=== PATIENT | female | born 1960 | race African-American/Black ===

== ENCOUNTER 2019-04-12 10:21 | Outpatient (CLI) | payer MEDICARE, MEDICAID, SELFPAY ==
--- NOTE | ~2019-04-12 | MM_ITS ---
EXAMINATION: MM screening johnathan BI w cristal HISTORY: Screening mammogram TECHNIQUE: Craniocaudal and mediolateral oblique 3-D tomosynthesis images were obtained and synthetic 2-D images were generated. CAD analysis was submitted and interpreted. COMPARISON: 08/04/2012 BREAST PARENCHYMAL COMPOSITION: There are scattered areas of fibroglandular density. FINDINGS: There is no evidence of suspicious mass, calcification, or architectural distortion to sugg est malignancy in either breast. There has been no suspicious interval change. IMPRESSION: 1. No mammographic evidence of malignancy. 2. Recommend routine screening mammography in one year. BI-RADS Category 1: Negative Reviewed, dictated and finalized at location A. SYSTEM ADMINISTRATOR
--- NOTE | ~2019-04-12 | XR_ITS ---
EXAMINATION: XR hip BI 2V w AP pelvis DATE: 04/12/2019 11:43 INDICATION: Right hip pain TECHNIQUE: AP view of the pelvis and three views of each hip were obtained. COMPARISON: 11/10/2009 FINDINGS: Bone alignment is normal. There is mild bilateral hip osteoarthritis. No fracture is identi fied. There are phleboliths of the pelvis. The bowel gas pattern is normal. The soft tissues are unre markable. There is mild/moderate lower lumbar spondylosis. IMPRESSION: 1. Mild hip osteoarthritis without acute findings. Reviewed, dictated and finalized at location A. ETRICS SCRUB NURSE
== END 2019-04-12 10:22 | disposition home or self-care (01) ==
PROVIDERS: PCP Family Medicine; Visit Provider Family Medicine
DX: Z12.31 Encounter for screening mammogram for malignant neoplasm of breast (principal); M16.11 Unilateral primary osteoarthritis, right hip
CPT/HCPCS: 73521; 77063; 77067

== ENCOUNTER 2020-10-29 10:42 | Emergency (ER) | payer MEDICARE, MEDICAID, SELFPAY ==
--- NOTE | ~2020-10-29 | XR_ITS ---
EXAMINATION: XR shoulder RT min 2V INDICATION: Right shoulder pain TECHNIQUE: Four views of the right shoulder are submitted. COMPARISON: 11/08/2005 FINDINGS: Normal alignment. No fracture. There is mild osteoarthritis of the glenohumeral joint and m oderate osteoarthritis of the acromioclavicular joint. Soft tissues are unremarkable. IMPRESSION: 1. No acute osseous abnormality. Reviewed, dictated and finalized at location A.
[2020-10-29 11:21] VITALS: BP 169/75; PULSE 94; RESP 18; TEMP 36.7; O2SAT 100
[2020-10-29 13:26] VITALS: BP 142/72; PULSE 76; RESP 18; O2SAT 99
--- NOTE | 2020-10-29 17:09 | ED.GENADULT ---
HPI - General Adult General Chief complaint: Ear Stated complaint: PAIN RT ARM, 3 WKS Time Seen by Provider: 10/29/20 11:50 Source: patient Mode of arrival: ambulatory Limitations: no limitations History of Present Illness HPI narrative: Patient presents with chief complaint of pain in her right shoulder over the past 3 weeks. Patient states she has been unable to lay on that side due to the pain. Patient states she is taking a few Aleve but not consistently. Patient reports she tried to get in with her primary care but there is an extensive wait. She denies any known falls. Patient reports pain is worse when she tries to abduct and internally rotate her shoulder. Patient states she has had some congestion for the past few months but that is not why she came to the emergency department. Related Data Allergies Allergy/AdvReac Type Severity Reaction Status Date / Time amoxicillin Allergy Mild Unknown Verified 10/29/20 11:26 tramadol Allergy Mild VOMITING Verified 10/29/20 11:26 ampicillin Allergy Unknown Pruritic Verified 10/29/20 11:26 rash Review of Systems Review of Systems: CONSTITUTIONAL: Denies fever, chills, or sweats. EYES: Denies visual changes, redness, or discharge. ENT: Denies rhinorrhea, congestion, sore throat, or otalgia. CARDIOVASCULAR: Denies chest pain, palpitations, or edema. RESPIRATORY: Denies cough or dyspnea. GASTROINTESTINAL: Denies abdominal pain, nausea, vomiting, or diarrhea. GENITOURINARY: Denies dysuria or hematuria. SKIN: Denies rash or itching. MUSCULOSKELETAL: Reports right shoulder pain denies back pain or myalgia. NEUROLOGIC: Denies headache, numbness, dizziness, or weakness. PSYCHIATRIC: Denies anxiety or depression. [facility] Family History Family History (Updated 03/16/18 @ 09:33 by DOCTOR UNKNOWN) Other Diabetes mellitus Hypertension Social History Social History Smoking status: Never smoker Exam Narrative: GENERAL: Well-appearing, well-nourished, and in no acute distress. HEAD: Normocephalic, atraumatic. EYES: PERRLA and EOMI. NECK: Supple. No pain with palpation. Range of motion intact. CHEST: Clear to auscultation. No respiratory distress. No wheezes rales or rhonchi HEART: Regular rate and rhythm. EXTREMITIES: Pain with abduction in internal rotation of right shoulder. No outward signs of trauma or injury noted. Strength intact distally sensation intact distally. No edema. SKIN: Warm, dry, no rash. NEURO: No focal deficits. Alert and oriented x3. PSYCH: Normal mood and affect. Course Vital Signs Vital signs: Vital Signs Temperature 98.0 F 10/29/20 11:21 Pulse Rate 94 10/29/20 11:21 Respiratory Rate 18 10/29/20 11:21 Blood Pressure 169/75 H 10/29/20 11:21 Pulse Oximetry 100 10/29/20 11:21 Temperature 98.0 F 10/29/20 11:21 Pulse Rate 76 10/29/20 13:26 Respiratory Rate 18 10/29/20 13:26 Blood Pressure 142/72 H 10/29/20 13:26 Pulse Oximetry 99 10/29/20 13:26 Medical Decision Making MDM Narrative Medical decision making narrative: Discussed with patient I will refer her to nuclear weapons specialist if there is any signs of weight with for her primary care. Suspect sprain of rotator cuff. We will give her naproxen and cyclobenzaprine. Patient instructed to follow-up for further investigation and management of her symptoms. Patient strict return to emergency department if she has any emergent symptoms. Vital Signs Vital Signs: Vital Signs Temperature 98.0 F 10/29/20 11:21 Pulse Rate 94 10/29/20 11:21 Respiratory Rate 18 10/29/20 11:21 Blood Pressure 169/75 H 10/29/20 11:21 Pulse Oximetry 100 10/29/20 11:21 Temperature 98.0 F 10/29/20 11:21 Pulse Rate 76 10/29/20 13:26 Respiratory Rate 18 10/29/20 13:26 Blood Pressure 142/72 H 10/29/20 13:26 Pulse Oximetry 99 10/29/20 13:26 Imaging Data Radiologist's impression: ITS Impressions Shoulder X-Ray 10/29/20 12:25 IMPRESSION:
== END 2020-10-29 13:28 | disposition home or self-care (01) ==
PROVIDERS: Emergency Provider Emergency Medicine; PCP Family Medicine
DX: S46.911A Strain of unspecified muscle, fascia and tendon at shoulder and upper arm level, right arm, initial encounter (principal); X58.XXXA Exposure to other specified factors, initial encounter
CPT/HCPCS: 73030; 99283

== ENCOUNTER 2021-01-28 11:11 | Emergency (ER) | payer MEDICARE, MEDICAID, SELFPAY ==
[2021-01-28 11:23] VITALS: BP 163/88; PULSE 80; RESP 16; TEMP 36.8; O2SAT 98
--- NOTE | 2021-01-28 12:25 | ED.GENADULT ---
HPI - General Adult General Chief complaint: Ear Stated complaint: Ear Pain Source: patient Mode of arrival: ambulatory Limitations: no limitations History of Present Illness HPI narrative: Patient is a 60-year-old -[place] female presents to the [facility] via POV for evaluation left ear pain that has been present for approximately 2 to 3 days. Additionally, she reports left sinus pain and pressure, left-sided facial swelling. She has also had left-sided frontal headaches and nasal congestion for approximately 1 week. No relief with OTC sinus medications. Nothing improves or worsen symptoms. History of chronic allergic rhinitis and sinusitis. She states today symptoms are identical to previous sinus infections Related Data Home Medications Medication Instructions Recorded Confirmed atorvastatin 01/28/21 empagliflozin [Jardiance] mg 01/28/21 fluconazole 01/28/21 fluticasone propionate INTRANASAL 01/28/21 gabapentin 01/28/21 glimepiride mg 01/28/21 hydrochlorothiazide 01/28/21 levothyroxine 01/28/21 levothyroxine 01/28/21 metoprolol succinate PO 01/28/21 Allergies Allergy/AdvReac Type Severity Reaction Status Date / Time amoxicillin Allergy Mild Unknown Verified 01/28/21 11:41 tramadol Allergy Mild VOMITING Verified 01/28/21 11:41 ampicillin Allergy Unknown Pruritic Verified 01/28/21 11:41 rash Review of Systems Review of Systems: Denies fever, chills, sweats, change in appetite, poor p.o. intake, severe persistent headache, sore throat, ear drainage, hearing difficulty, tinnitus, vertigo, rhinorrhea, abdominal pain, nausea, vomiting, diarrhea, chest pain, heart palpitations, cough, and wheezing PMFSH Past Medical History Medical History (Updated 01/28/21 @ 12:42 by GILL Fitzgerald, BC) Diabetes mellitus Hypertension Hypothyroidism Neuropathy Family History Family History Other Diabetes mellitus Hypertension Social History Social History Smoking status: Never smoker Comments I have reviewed and agree with the patient's past medical, surgical, social, and family hx as documented by the RN. There is no relevant family history pertinent to the presenting complaint. Exam Narrative: GENERAL: Well-appearing, well-nourished, and in no acute distress. HEAD: Normocephalic, atraumatic. Moderate left-sided maxillary and bilateral ethmoid sinus tenderness appreciated upon examination. Moderate swelling noted over left maxillary sinus. EYES: PERRLA and EOMI. No evidence of erythema, swelling, or drainage. ENT: Bilateral external ears and ear canals normal. Bilateral TMs are normal.No TM perforation. Nares clear, no rhinorrhea or epistaxis. Bilateral turbinates without erythema/ swelling. Mucous membranes moist and pink. Uvula is midline without erythema and swelling. No evidence of petechial rash, cobblestoning, lesions, ulcers, erythema, swelling, exudates, peritonsillar abscess, tenting, or drooling. Breath odor and voice normal. NECK: Supple. No Lymphadenopathy or nuchal rigidity appreciated. CHEST: Bilateral lung aguilera are clear to auscultation. No respiratory distress. No evidence of cough or pleuritic cp upon examination. HEART: Regular rate and rhythm. No murmur, gallop, or rub heard. EXTREMITIES: Normal range of motion. No edema. SKIN: Warm, dry, no rash. NEURO: No focal deficits. Alert and oriented x3. Course Vital Signs Vital signs: Vital Signs Temperature 98.2 F 01/28/21 11:23 Pulse Rate 80 01/28/21 11:23 Respiratory Rate 16 01/28/21 11:23 Blood Pressure 163/88 H 01/28/21 11:23 Pulse Oximetry 98 01/28/21 11:23 Temperature 98.2 F 01/28/21 11:23 Pulse Rate 80 01/28/21 11:23 Respiratory Rate 16 01/28/21 11:23 Blood Pressure 163/88 H 01/28/21 11:23 Pulse Oximetry 98 01/28/21 11:23 Medical Decisi
== END 2021-01-28 12:35 | disposition home or self-care (01) ==
PROVIDERS: Emergency Provider Nurse Practitioner Family
DX: J32.9 Chronic sinusitis, unspecified (principal); I10 Essential (primary) hypertension; E03.9 Hypothyroidism, unspecified; E11.40 Type 2 diabetes mellitus with diabetic neuropathy, unspecified
CPT/HCPCS: 99213; G0463

== ENCOUNTER 2021-09-30 14:50 | Emergency (ER) | payer MEDICARE, MEDICAID, SELFPAY ==
--- NOTE | ~2021-09-30 | XR_ITS ---
EXAMINATION: XR elbow LT min 3V DATE: 09/30/2021 16:07 INDICATION: Left elbow pain. Fall. TECHNIQUE: 5 views of left elbow were obtained. COMPARISON: None. FINDINGS: Bone alignment is normal. No fracture. Joint spaces are normal. There are enthesophytes at medial humeral epicondyle and sublime tubercle of proximal ulna. No elbow joint effusion. IMPRESSION: 1. No fracture. Reviewed, dictated and finalized at location A. IMPRESSION: 1. No fracture.
[2021-09-30 14:56] VITALS: BP 133/70; PULSE 87; RESP 16; TEMP 36.2; O2SAT 100
--- NOTE | 2021-09-30 15:20 | ED.LOWEXIN ---
HPI - Extremity Injury (Lower) General Chief Complaint: Extremity Injury, Lower Stated Complaint: left elbow pain Time Seen by Provider: 09/30/21 15:20 Source: patient Mode of arrival: ambulatory Limitations: no limitations History of Present Illness HPI Narrative: 61-year-old female presented for complaint of left elbow pain and swelling after injury 1 month ago. States she lost her footing and landed on the right knee, and hit the elbow on the side of the house. Since then she has throbbing pain in the elbow worse at night, rates 8 out of 10. She denies associated numbness, tingling, weakness of the hand. Endorses decreased range of motion at the elbow due to pain. She also endorses right knee pain which she states is mild, rates it 4 out of 10. Taking aleve for symptoms. Related Data Home Medications Medication Instructions Recorded Confirmed atorvastatin 80 mg tablet 01/28/21 empagliflozin 10 mg tablet mg 01/28/21 (Jardiance) gabapentin 300 mg capsule 01/28/21 glimepiride 1 mg tablet mg 01/28/21 hydrochlorothiazide 12.5 mg capsule 01/28/21 levothyroxine 50 mcg tablet 100 mcg 01/28/21 metoprolol succinate 50 mg PO 01/28/21 tablet,extended release 24 hr Allergies Allergy/AdvReac Type Severity Reaction Status Date / Time amoxicillin Allergy Mild Unknown Verified 09/30/21 15:34 tramadol Allergy Mild VOMITING Verified 09/30/21 15:34 ampicillin Allergy Unknown Pruritic Verified 09/30/21 15:34 rash unknown abx Allergy Other Uncoded 09/30/21 15:34 Review of Systems Review of Systems: CONSTITUTIONAL: Denies body aches, fever, chills EYES: Denies visual changes ENT: Denies rhinorrhea, congestion CARDIOVASCULAR: Denies chest pain, palpitations, or edema. RESPIRATORY: Denies cough or dyspnea. SKIN: Denies rash, itching, or wounds. MUSCULOSKELETAL: reports joint pain; elbow, knee NEUROLOGIC: Denies headache, numbness, tingling, or weakness. All systems reviewed & are unremarkable except as noted in HPI and below PMFSH Past Medical History Medical History Diabetes mellitus Hypertension Hypothyroidism Neuropathy Family History Family History Other Diabetes mellitus Hypertension Social History Social History Smoking status: Never smoker Comments At time of signature, I have reviewed and agree with nursing past medical, surgical, social and family history unless otherwise noted. Please see nursing chart for further information. There is no relevant family history pertinent to the presenting complaint Exam Narrative: GENERAL: Well-appearing EYES: conjunctivae clear CHEST: Speaks in full sentences. No respiratory distress. HEART: Regular rate and rhythm. Normal and equal peripheral pulses. EXTREMITIES: Left elbow with mild swelling, full range of motion but reports pain with full extension. Has normal strength and sensation to left hand. Point tenderness to lateral aspect of olecranon. No open wounds, or obvious deformity; pulse palpable and equal bilaterally, skin warm, dry, pink. Capillary refill less than 3 seconds. Right knee nontender, no swelling, gait steady. SKIN: Warm, dry, no rash. NEURO: Alert and oriented x3. PSYCH: Normal mood and affect Course Course Emergency Course: Patient is aware of diagnosis, understands and agrees to treatment plan. Anticipatory guidance given. Patient agrees to follow-up as directed and is aware of reasons to seek care at the emergency department. Portions of this record may have been created with voice recognition software Level of Care: Express Care Visit Vital Signs Vital signs: Vital Signs Temperature 97.1 F L 09/30/21 14:56 Pulse Rate 87 09/30/21 14:56 Respiratory Rate 16 09/30/21 14:56 Blood Pressure 133/70 09/30/21 14:56 Pulse Oximetry 100
== END 2021-09-30 16:28 | disposition home or self-care (01) ==
PROVIDERS: Emergency Provider Nurse Practitioner Family
DX: S50.02XA Contusion of left elbow, initial encounter (principal); W19.XXXA Unspecified fall, initial encounter; I10 Essential (primary) hypertension; E03.9 Hypothyroidism, unspecified; E11.40 Type 2 diabetes mellitus with diabetic neuropathy, unspecified
CPT/HCPCS: 73080; 99213; G0463

== ENCOUNTER 2021-12-29 09:03 | Outpatient (CLI) | payer MEDICARE, MEDICAID, SELFPAY ==
--- NOTE | ~2021-12-29 | MM_ITS ---
EXAMINATION: MM screening johnathan BI w cristal HISTORY: Screening TECHNIQUE: Craniocaudal and mediolateral oblique 3-D tomosynthesis images were obtained and synthetic 2-D images were generated. CAD analysis was submitted and interpreted. COMPARISON: Comparison to multiple prior studies sequentially, with oldest reviewed study dated 03/2013. BREAST PARENCHYMAL COMPOSITION: There are scattered areas of fibroglandular density. FINDINGS: There is no evidence of suspicious mass, calcification, or architectural distortion to sugg est malignancy in either breast. There has been no suspicious interval change. IMPRESSION: 1. No mammographic evidence of malignancy. 2. Recommend routine screening mammography in one year. BI-RADS Category 1: Negative Reviewed, dictated and finalized at location A. MATED TELLER MANAGER
== END 2021-12-29 09:04 | disposition home or self-care (01) ==
PROVIDERS: PCP Physician Assistant; Visit Provider Physician Assistant
DX: Z12.31 Encounter for screening mammogram for malignant neoplasm of breast (principal)
CPT/HCPCS: 77063; 77067

== ENCOUNTER 2022-03-07 09:22 | Outpatient (CLI) | payer MEDICARE, MEDICAID, SELFPAY ==
--- NOTE | ~2022-03-07 | XR_ITS ---
Left Hand Technique: PA, oblique, and lateral views were obtained. Clinical History: Pain Findings: No acute fracture or dislocation is seen. Osseous alignment is anatomic. Joint spaces are p reserved. Soft tissues are unremarkable. Impression: Unremarkable left hand. Reviewed, dictated and finalized at location M. HOUSE SUPERVISOR Impression: Unremarkable left hand.
--- NOTE | ~2022-03-07 | XR_ITS ---
Right Hand Technique: PA, oblique, and lateral views were obtained. Clinical History: Pain Findings: No acute fracture or dislocation is seen. Osseous alignment is anatomic. Joint spaces are p reserved. Soft tissues are unremarkable. Impression: Unremarkable right hand. Reviewed, dictated and finalized at location M. INUM CONTAINER TESTER Impression: Unremarkable right hand.
== END 2022-03-07 09:23 | disposition home or self-care (01) ==
PROVIDERS: PCP Physician Assistant; Visit Provider Physician Assistant
DX: M79.641 Pain in right hand (principal); M79.642 Pain in left hand
CPT/HCPCS: 73130

== ENCOUNTER 2023-03-21 15:39 | Outpatient (CLI) | payer MEDICARE, MEDICAID, SELFPAY ==
--- NOTE | ~2023-03-21 | MM_ITS ---
EXAMINATION: MM screening johnathan BI w cristal HISTORY: Screening mammogram TECHNIQUE: Craniocaudal and mediolateral oblique 3-D tomosynthesis images were obtained and synthetic 2-D images were generated. CAD analysis was submitted and interpreted. COMPARISON: 12/29/2021, 04/04/2019 bilateral screening mammogram examinations BREAST PARENCHYMAL COMPOSITION: The breasts are heterogeneously dense, which may obscure small masses . FINDINGS: There is no evidence of suspicious mass, calcification, or architectural distortion to sugg est malignancy in either breast. There has been no suspicious interval change. IMPRESSION: 1. No mammographic evidence of malignancy. 2. Recommend routine screening mammography in one year. BI-RADS Category 1: Negative Reviewed, dictated and finalized at location A. N RICE GRADER AND REEL TENDER
== END 2023-03-21 15:40 | disposition home or self-care (01) ==
PROVIDERS: PCP Physician Assistant; Visit Provider Physician Assistant
DX: Z12.31 Encounter for screening mammogram for malignant neoplasm of breast (principal)
CPT/HCPCS: 77063; 77067

== ENCOUNTER 2024-03-25 12:30 | Emergency (ER) | payer MEDICARE, MEDICAID, SELFPAY ==
[2024-03-25 12:44] VITALS: BP 114/66; PULSE 101; RESP 16; TEMP 36.6; O2SAT 100
--- NOTE | 2024-03-25 13:24 | ED.SKABFB ---
HPI - Skin/Abscess/Foreign Bdy General Chief complaint: Skin/Abscess/Foreign Body Stated complaint: Wound Check Time Seen by Provider: 03/25/24 13:24 Source: patient, RN notes reviewed and old records reviewed Mode of arrival: ambulatory Limitations: no limitations History of Present Illness HPI narrative: 63-year-old female presents to the [facility] with concerns of ?a boil? in her buttock. Patient reports a history of boils in the same area states that she normally gets admitted to the hospital and they have to surgically drain them. Patient reports that the boil started 4 days ago, for the last 3 days has had high fevers, subjective. Reports that she has been taking Tylenol without relief of pain but is helping the fever. States this morning it started to drain, thick brown purulent drainage. Patient with a history of thyroid disorder, diabetes, AFib and hypertension Onset (ago): day(s) (4) Treatments prior to arrival: other (Tylenol) Related Data Home Medications ?Medication ?Instructions ?Recorded ?Confirmed ?Last Taken ?Type atorvastatin 80 mg tablet 01/28/21 Unknown History empagliflozin 10 mg tablet mg 01/28/21 Unknown History (Jardiance) gabapentin 300 mg capsule 01/28/21 Unknown History glimepiride 1 mg tablet mg 01/28/21 Unknown History hydrochlorothiazide 12.5 mg capsule 01/28/21 Unknown History levothyroxine 50 mcg tablet 100 mcg 01/28/21 Unknown History metoprolol succinate 50 mg PO 01/28/21 Unknown History tablet,extended release 24 hr amlodipine 10 mg tablet mg 03/25/24 Unknown History fenofibrate 160 mg tablet mg 03/25/24 Unknown History fluoxetine 20 mg capsule mg 03/25/24 Unknown History losartan 100 mg tablet mg 03/25/24 Unknown History pantoprazole 20 mg tablet,delayed mg PO 03/25/24 Unknown History release sitagliptin phosphate 100 mg mg 03/25/24 Unknown History tablet (Januvia) Allergies Allergy/AdvReac Type Severity Reaction Status Date / Time amoxicillin Allergy Mild Unknown Verified 03/25/24 12:57 tramadol Allergy Mild VOMITING Verified 03/25/24 12:57 ampicillin Allergy Unknown Pruritic Verified 03/25/24 12:57 rash unknown abx Allergy Other Uncoded 03/25/24 12:57 Review of Systems Review of Systems: All systems reviewed & are unremarkable except as noted in HPI and below Constitutional: Constitutional: Reports no additional constitutional complaints ENT: Reports system reviewed and no additional complaints, except as documented Cardiovascular: Cardiovascular: Reports no additional cardiovascular complaints, Denies chest pain and Denies dyspnea Respiratory: Respiratory: Reports no additional respiratory complaints, Denies chest congestion, Denies cough and Denies dyspnea Gastrointestinal: Gastrointestinal: Reports as per HPI Musculoskeletal: Musculoskeletal: Reports no additional musculoskeletal complaints Integumentary/Breasts: Skin/Breast: Reports as per HPI PMFSH Past Medical History Medical History Neuropathy Diabetes mellitus Hypothyroidism Hypertension Family History Family History Other Diabetes mellitus Hypertension Social History Social History Smoking status: Never smoker Comments At the time of my signature, I reviewed and agree with the nursing past medical, surgical, social, and family history. There is no relevant family history pertinent to the patient complaint. Exam Const: General: cooperative, healthy appearing, comfortable, no acute distress, well developed, alert and well nourished Nutritional Appearance: well nourished and obese Orientation/consciousness: patient oriented x3 Limitations: no limitations HENMT: Head: normal to inspection Eyes: General: appearance normal, both eyes and all related structures Alignment and Position: alignment normal Neck: Neck: normal visual inspection, full ROM, no lymphadenopathy and no meningeal signs Chest: Chest palpation & inspection: normal inspection of the chest Resp: Effort & Inspection: normal respiratory effort and able to speak in complete sentences GI: Rectal Exam: abscess (Draining, purulent) Skin: General skin exam: normal color and no rashes or lesions noted Neuro: General: patient oriented x3, gait normal, moves all extremities and no meningeal signs Cognition (Neuro): normal cognition Speech: normal speech Gait exam (Neuro): Normal gait present Extrem: General: normal to inspection, full ROM, capillary refill normal and normal gait Psych: Appearance: grossly normal and well kempt Mental Status: mental status grossly normal Speech and movement: Normal speech and movement present and Clear speech present Affect: normal affect Attitude: cooperative Course Course Level of Care: Express Care Visit Vital Signs Vital signs: Vital Signs Temperature 97.8 F 03/25/24 12:44 Pulse Rate 101 H 03/25/24 12:44 Respiratory Rate 16 03/25/24 12:44 Blood Pressure 114/66 03/25/24 12:44 Pulse Oximetry 100 03/25/24 12:44 Oxygen Delivery Room Air 03/25/24 12:44 Temperature 97.8 F 03/25/24 12:44 Pulse Rate 101 H 03/25/24 12:44 Respiratory Rate 16 03/25/24 12:44 Blood Pressure 114/66 03/25/24 12:44 Pulse Oximetry 100 03/25/24 12:44 Oxygen Delivery Room Air 03/25/24 12:44 Reviewed Transfer Transfered to: [facility] Transportation: Other (pov) Transfer rationale: Patient with a history of rectal abscesses or pilonidal cyst presents with 4 day history of a ?boil Purulent drainage Patient also reports fevers as well as being diabetic sending for higher level of care Accepting physician: Dr. Bennett MDM - Skin/Abscess/Foreign Bdy MDM Narrative Medical decision making narrative: Patient sitting in exam room. Extremely uncomfortable. Patient is nontoxic, vitals are stable Patient presents with 4 day history of ?a boil? States that burst today. Purulent drainage is noted Patient is reporting a fever with a history of abscesses in the same area and states that she normally is admitted due to these abscesses. Transferring for higher level foot care due to patient's diabetes, concern for a significant abscess, rectal abscess, cellulitis Transfer instructions reviewed with patient and also went over by RN. Discussed going directly to the ER. All questions have been answered, and the patient deny any further questions. Some parts of this dictation were generated by voice recognition software and may contain typographical and/or grammatical inaccuracies. Differential Diagnosis Differential diagnosis: Likely abscess of skin or subcutaneous tissue and other (Rectal abscess, pilonidal cyst) Critical Care Time Critical Care Time Critical Care Time: No Discharge Plan Discharge Clinical Impression: Abscess of anal or rectal region Patient Disposition: Acute Care Hospital Condition: Stable Patient Language: Khmer Prescriptions: No Action atorvastatin 80 mg tablet metoprolol succinate 50 mg tablet extended release 24 hr PO glimepiride 1 mg tablet levothyroxine 50 mcg tablet 100 mcg hydrochlorothiazide 12.5 mg capsule gabapentin 300 mg capsule Jardiance 10 mg tablet ibuprofen 800 mg tablet 800 mg PO TID PRN (Reason: pain) Qty: 15 0RF pantoprazole 20 mg tablet,delayed release (DR/EC) PO amlodipine 10 mg tablet losartan 100 mg tablet fluoxetine 20 mg capsule fenofibrate 160 mg tablet Januvia 100 mg tablet Follow-up/Referrals: Catrachito,MONICA Mahoney [Primary Care Provider] -
== END 2024-03-25 13:45 | disposition short-term general hospital (02) ==
PROVIDERS: Emergency Provider Nurse Practitioner; PCP Physician Assistant
DX: K61.0 Anal abscess (principal); K61.1 Rectal abscess; E11.40 Type 2 diabetes mellitus with diabetic neuropathy, unspecified; I10 Essential (primary) hypertension; E78.2 Mixed hyperlipidemia; I48.91 Unspecified atrial fibrillation
CPT/HCPCS: 99212; G0463

== ENCOUNTER 2024-06-03 13:46 | Outpatient (CLI) | payer OTHER, SELFPAY ==
--- NOTE | ~2024-06-03 | MM_ITS ---
EXAMINATION: MM screening [facility] BI w cristal HISTORY: Screening TECHNIQUE: Craniocaudal and mediolateral oblique 3-D tomosynthesis images were obtained and synthetic 2-D images were generated. CAD analysis was submitted and interpreted. COMPARISON: 03/21/2023 and dating back to 09/21/2017 BREAST PARENCHYMAL COMPOSITION: There are scattered areas of fibroglandular density. FINDINGS: Punctate calcifications are detected bilaterally, stable and benign in appearance. Stable parenchymal pattern without suspicious microcalcifications, architectural distortion, discrete masses or significant asymmetry. IMPRESSION: 1. No mammographic evidence of malignancy. 2. Recommend routine screening mammography in one year. BI-RADS Category 2: Benign finding(s). Reviewed, dictated and finalized at location A.
--- OUTSIDE RECORDS SUMMARY | 2024-06-03 15:38 | XMS_ITS | Clinical Summary ---
Author Organization [facility] Building [address] Address [address] [place] [address] Care Team Providers Care Hydro Excavation Operator Name Role Phone Maru Winston Primary Care Provider [phone] Allergies Active Allergy Reactions Criticality Noted Date Comments Ampicillin Hives Medium 02/09/2011 Ciprofloxacin Nausea & Vomiting Low 08/28/2018 Metronidazole Nausea & Vomiting Low 08/28/2018 Medications atorvastatin (LIPITOR) 80 mg tablet Take 1 tablet (80 mg total) by mouth daily 06/13/2018 Active baclofen (LIORESAL) 10 mg tablet Take 1 tablet (10 mg total) by mouth daily 06/13/2018 Active gabapentin (NEURONTIN) 300 mg capsule Take 1 capsule (300 mg total) by mouth as needed 08/14/2018 Active hydroCHLOROthia zide (MICROZIDE) 12.5 mg capsule Take 1 capsule (12.5 mg total) by mouth daily 05/30/2018 Active zolpidem (AMBIEN) 10 mg tablet 04/02/2019 Active glimepiride (AMARYL) 1 mg tablet 04/15/2019 Active fluticasone propionate (FLONASE) 50 mcg/actuation nasal spray 05/09/2019 Active FLUoxetine (PROzac) 20 mg capsule 04/19/2019 Active acyclovir (ZOVIRAX) 400 mg tablet 03/19/2019 Active acetaminophen (TYLENOL) 500 mg tablet Take 1 tablet (500 mg total) by mouth every 6 (six) hours as needed for pain Active famotidine (PEPCID) 20 mg tablet Take 1 tablet (20 mg total) by mouth 2 (two) times a day as needed 11/28/2019 Active Jardiance 10 mg tablet Take 1 tablet (10 mg total) by mouth daily 05/21/2020 Active levothyroxine (SYNTHROID) 50 mcg tablet Take 1 tablet (50 mcg total) by mouth daily 06/11/2020 Active ergocalciferol (VITAMIN D) 50,000 unit capsule Take 1 capsule (50,000 Units total) by mouth once a week Active omega-3 fatty acids 1,000 mg capsule Take by mouth Active metoprolol XL (TOPROL-XL) 50 mg extended release tablet Take 1 tablet (50 mg total) by mouth daily 90 tablet 08/31/2020 Active fenofibrate (TRIGLIDE) 160 mg tablet Take 1 tablet (160 mg total) by mouth daily 12/06/[address] (PROTONIX) 20 mg EC tablet Take 1 tablet (20 mg total) by mouth every morning 01/16/2024 Active Januvia 100 mg tablet Take 1 tablet (100 mg total) by mouth daily 03/13/2024 Active losartan (COZAAR) 100 mg tablet Take 1 tablet (100 mg total) by mouth every morning 02/01/2024 Active amLODIPine (NORVASC) 10 mg tablet Take 1 tablet (10 mg total) by mouth every morning Active HYDROcodone-mayito taminophen (NORCO) 5-325 mg per tabletIndicatio ns:Pain Take 1 tablet by mouth every 6 (six) hours as needed for pain 6 tablet 03/26/2024 Active Active Problems Problem Noted Date Diagnosed Date Paroxysmal atrial fibrillation 11/29/2018 Encounters Date Type Department Care Team Description 03/26/2024 9:08 AM DEVELOPMENT CONSULTANT - 03/26/2024 1:53 PM [facility] Emergency [address] [address] Perianal abscess (Primary Dx) Discharge Disposition: Discharge to home or self care 03/13/2024 2:30 PM DEVELOPMENT CONSULTANT Office Visit [facility] [address] [place] [address] Hoda Aguila NP Lipid screening (Primary Dx); Paroxysmal atrial fibrillation (HCC) from Last 3 Months Medical History Medical History Date Comments Atrial fibrillation (HCC) Hypertension Social History Tobacco Use Types Packs/Day Years Used Date Smoking Tobacco: Some Days Cigarettes 0.3 40 Started: 12/03/1979; Last attempted to quit: 12/03/2019 Smokeless Tobacco: Never Tobacco Cessation:Ready to Q uit: Not Asked; Counseling Given: Not Answered Alcohol Use Standard Drinks/Week Comments Not Currently 0 (1 standard drink = 0.6 oz pur e alcohol) Personal Safety Answer Date Recorded Have you ever been in or are you currently in a harmful physical or emotional relationship or is someone making you feel afraid or unsafe? Denies 03/26/2024 Comments Unknown Sex and Gender Information Value Date Recorded Sex Assigned at Not on file Legal Sex Female 9:50 AM CDT Gender Identity Not on file Sexual Orientation Not on file Obstetrics History Last Filed Vital Signs Vital Sign Reading Time Taken Comments Blood Pressure 122/68 03/26/2024 1:30 PM DEVELOPMENT CONSULTANT Pulse 88 03/26/2024 1:30 PM DEVELOPMENT CONSULTANT Temperature 36.8 C (98.3 F) 03/26/2024 8:00 AM DEVELOPMENT CONSULTANT Respiratory Rate 16 03/26/2024 1:30 PM DEVELOPMENT CONSULTANT Oxygen Saturation 100% 03/26/2024 1:30 PM DEVELOPMENT CONSULTANT Inhaled Oxygen Concentration - - Weight 114.6 kg (252 lb 10.4 oz) 03/26/2024 8:08 AM DEVELOPMENT CONSULTANT Height 172.7 cm (5' 8 ) 03/26/2024 8:00 AM DEVELOPMENT CONSULTANT Body Mass Index 38.41 03/26/2024 8:00 AM DEVELOPMENT CONSULTANT Plan of Treatment Health Maintenance Due Date Last Done Comments Breast Cancer Screening-Mammogram 1960 Cervical Cancer Screening 1959 Colon Cancer Screening-Colonoscopy 1959 Depression Screening 1959 Hepatitis C Screening 1959 DTaP/Tdap/Td Vaccine (1 - Tdap) 09/20/1970 Hepatitis B Screening 09/20/1977 Regular Well Visit/Exam 18-64 09/20/1977 Pneumococcal vaccine <65 (1 of 2 - PCV) 09/20/1978 Zoster Vaccine (1 of 2) 09/20/2009 Influenza Vaccine (#1) 2023 Procedures Procedure Name Priority Date/Time Associated Diagnosis Comments AEROBIC AND ANAEROBIC CULTURE AND GRAM STAIN Routine 03/26/2024 12:21 PM DEVELOPMENT CONSULTANT POCT GLUCOSE DEVICE Routine 03/26/2024 1 1:56 AM DEVELOPMENT CONSULTANT BLOOD CULTURE STAT 03/26/2024 9:42 AM DEVELOPMENT CONSULTANT BLOOD CULTURE STAT 03/26/2024 9:[address] ABDOMEN PELVIS W CONTRAST ED 03/26/2024 9:39 AM DEVELOPMENT CONSULTANT SEPSIS LACTATE WITH REFLEX STAT 03/26/2024 8:33 AM DEVELOPMENT CONSULTANT EGFR STAT 03/26/2024 8:11 AM DEVELOPMENT CONSULTANT DIFFERENTIAL AUTO STAT 03/26/2024 8:1 1 AM DEVELOPMENT CONSULTANT CBC WITH AUTO DIFFERENTIAL STAT 03/26/2024 8:11 AM DEVELOPMENT CONSULTANT COMPREHENSIVE METABOLIC PANEL STAT 03/26/2024 8:11 AM DEVELOPMENT CONSULTANT POCT LIPID PANEL Routine 03/13/2024 2:46 PM DEVELOPMENT CONSULTANT Lipid screening from Last 3 Months Results * (ABNORMAL) Aerobic and anaerobic culture and gram stain Abscess Anal (03/26/2024 12:21 PM DEVELOPMENT CONSULTANT) Direct Specimen Exam Stain: Few polymorphonuclear leukocytes seen. Few Gram Positive Cocci Rare Gram Positive Bacilli Rare Gram Negative Bacilli Comment:Testing performed by : [facility], [address] [place] [address] Report Final Report: Few Mixed aerobic and anaerobic microorganisms (.) CLYDE LANGFORD Comment:Testing performed by : [facility], [address] [place] [address] Organism MIXED AEROBIC AND ANAEROBIC MICROORGANISMS CLYDE LANGFORD Abscess (Anal) 03/26/2024 12 :21 PM DEVELOPMENT CONSULTANT 03/26/2024 3:41 PM DEVELOPMENT CONSULTANT Narrative CLYDE LANGFORD - 03/31/2024 3:01 PM DEVELOPMENT CONSULTANT Specimen received on an ESwab. Testing performed by [facility] ([phone]) Specimens submitted from normally sterile body sites will have all bacterial morphotypes identified. Specimens that contain grossly mixed lyric and/or are from body sites that are not normally sterile will be examined for Staphylococcus aureus, Pseudomonas aeruginosa, beta-hemolytic strep, vancomycin-resistant Enterococcus, Bacteroides, Parabacteroides, Clostridium perfringens and fungus. If any of these are isolated, the organism will be reported. Current interpretive data was last revised on 2019. [facility] LAB MICROBIOLOGY - GENERAL OR DERABLES Final Result Performing Organization Address [facility]/ZIP Co de Phone Number [address] [place], [place] [id number] * POCT glucose (03/26/2024 11:56 AM DEVELOPMENT CONSULTANT) Glucose, POC 112 70 - 199 mg/dL Blood 03/26/2024 11:5 6 AM DEVELOPMENT CONSULTANT 03/26/2024 11:56 AM DEVELOPMENT CONSULTANT Notinfile Unknown LAB POCT ORDERABLES - DEVICE F inal Result Performing Organization Address [facility] Co de Phone Number [address] [place] [address] * Blood culture Blood Peripheral (03/26/2024 9:42 AM DEVELOPMENT CONSULTANT) Report Final Report: No growth Comment:Testing performed by : [facility], [address] [place]., [address] Blood (Peripheral) 03/26/2024 9:42 AM DEVELOPMENT CONSULTANT 03/26/2024 11:09 AM DEVELOPMENT CONSULTANT Narrative CLYDE - 03/30/2024 12:00 PM DEVELOPMENT CONSULTANT From a different site than #1. Draw Blood cultures before administration of Antibiotics Collection->Peripheral 1. Blood cultures are incubated for 4 days on a continuously monitored blood culture system. The first report of a negative culture is issued within 24 hours of receipt of the specimen in the laboratory. 2. Positive culture results are reported as soon as they are detected. 3. The most important factor for detection of microbes in the setting of bloodstream infection is the volume of blood submitted for culture. Failure to collect an optimal blood volume can result in false negative blood cultures. 4. For pediatric patients, the recommended blood volume to collect follows a weight based strategy. See the electronic test catalog for collection instructions. 5. For positive blood cultures, a rapid molecular test may be performed for organism identification using the giovana ePlex blood culture identification panel for gram positive (BCID-GP) and gram negative (BCID-GN) organisms. This nucleic acid amplification test detects microbial DNA in positive blood culture broth. This assay has been cleared by the [place] Food and Drug Administration and its performance characteristics have been verified by the [facility]. For questions about this culture, contact the Microbiology Laboratory at [phone]. Interpretive data was last revised on 23. [facility] MICROBIOLOGY - GENERAL OR DERABLES Final Result CLYDE [address] [facility] Department [place] [address] * Blood culture Blood Peripheral (03/26/2024 9:40 AM DEVELOPMENT CONSULTANT) Report Final Report: No growth Comment:Testing performed by : [facility], [address] [place]., [address] Blood (Peripheral) 03/26/2024 9:40 AM DEVELOPMENT CONSULTANT 03/26/2024 11:09 AM DEVELOPMENT CONSULTANT Stacey TANG [facility] 03/30/2024 12:00 PM DEVELOPMENT CONSULTANT Draw Blood cultures before administration of Antibiotics Collection->Peripheral 1. Blood cultures are incubated for 4 days on a continuously monitored blood culture system. The first report of a negative culture is issued within 24 hours of receipt of the specimen in the laboratory. 2. Positive culture results are reported as soon as they are detected. 3. The most important factor for detection of microbes in the setting of bloodstream infection is the volume of blood submitted for culture. Failure to collect an optimal blood volume can result in false negative blood cultures. 4. For pediatric patients, the recommended blood volume to collect follows a weight based strategy. See the electronic test catalog for collection instructions. 5. For positive blood cultures, a rapid molecular test may be performed for organism identification using the giovana ePlex blood culture identification panel for gram positive (BCID-GP) and gram negative (BCID-GN) organisms. This nucleic acid amplification test detects microbial DNA in positive blood culture broth. This assay has been cleared by the [place] Food and Drug Administration and its performance characteristics have been verified by the [facility]. For questions about this culture, contact the Microbiology Laboratory at [phone]. Interpretive data was last revised on 23. us [facility] LAB MICROBIOLOGY - GENERAL OR DERABLES Final Result CLYDE [address] [facility] Department [place] [address] * CT Abdomen Pelvis W Contrast (03/26/2024 9:39 AM DEVELOPMENT CONSULTANT) Anatomical Region Laterality Modality Body N/A Computed Tomogra phy 03/26/2024 10:0 9 AM DEVELOPMENT CONSULTANT Narrative 03/26/2024 10:21 AM DEVELOPMENT CONSULTANT EXAM DESCRIPTION: CT ABDOMEN PELVIS W CONTRAST REASON FOR STUDY: perirectal abcess Perirectal abscess. chronic boils and new onset of boil this Monday Pt states, I was getting ready to go to the hospital and it is in the crack of my behind and it busted, and I went to [facility] and they didn't give me antibiotics and told me to go to the hospital Endorses: active drainage from site (blood and pus per patient) Denies: n/v/d, urinary complaints, fevers/chills, abdominal pain Hx: A-fib, HTN TECHNIQUE: CT scan of the abdomen and pelvis performed with intravenous and without oral contrast using helical scanning technique with dynamic intravenous contrast injection. Reconstructed coronal and sagittal MPR images reviewed. All images stored on PACS. Automated exposure control was used as a dose optimization technique for this examination. CONTRAST TYPE/DOSE: 100mL of IOVERSOL 350 MG IODINE/ML INTRAVENOUS SYRINGE injected via intravenous COMPARISON: None REFERENCE: Per ACR white paper recommendations, unless otherwise specified no follow-up imaging is recommended for incidental renal and adrenal lesions per consensus recommendations based on imaging criteria. Further lab evaluation could be pursued based on clinical findings. FINDINGS: LOWER CHEST: Borderline cardiomegaly. Small hiatal hernia with mild esophageal wall thickening of the lower esophagus. Small calcified pulmonary nodules, likely sequela of previous granulomatous disease. LIVER: No concerning lesions. GALLBLADDER/BILE DUCTS: Mildly distended thin-walled gallbladder. No radiopaque cholelithiasis or adjacent inflammatory changes. SPLEEN: Normal size. No focal concerning lesions. PANCREAS: No significant ductal dilatation or discrete lesion. ADRENALS: Trace nonspecific left periadrenal stranding. No discrete nodule. KIDNEYS/URETERS: Subcentimeter low-attenuation lesions which are too small to further characterize and do not require imaging follow-up (Bosniak II). No hydronephrosis. BLADDER/URINARY: No significant wall thickening. 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 No concerning adnexal lesion, although the ovaries are poorly evaluated by CT. GASTROINTESTINAL: Mild wall thickening of the inferior rectum and anal canal although likely accentuated by decompression. Trace adjacent presacral edema. Mild edematous appearance of the anal verge with mild soft tissue and skin thickening of the adjacent perineum. No organized drainable fluid collection. No subcutaneous emphysema. No significant bowel wall thickening. No bowel obstruction. Unremarkable appearance of the appendix. Mild lower esophageal wall thickening as above. LYMPH NODES: Mildly prominent iliac chain and retroperitoneal lymph nodes which are nonspecific and possibly reactive. No pathologically enlarged lymphadenopathy. PERITONEUM/RETROPERITONEUM: No ascites or free air. VASCULATURE: Multifocal atherosclerotic changes of the abdominal aorta and its major branches. No abdominal aortic aneurysm. MUSCULOSKELETAL: Soft tissue and skin thickening of the anal verge and adjacent perineum as above. No organized drainable fluid collection. Tiny supraumbilical and periumbilical fat containing hernias. Multilevel degenerative changes of the visualized spine. No aggressive appearing osseous lesions. No acute osseous abnormality. Grade 1 anterolisthesis of L3 on L4. High-grade neural foraminal narrowing L3-S1. OTHER: No significant abnormality. IMPRESSION: Mild edematous appearance of the anal verge and adjacent perineum with mild soft tissue and skin thickening. No organized drainable fluid collection. No subcutaneous emphysema. Recommend correlation with physical examination. Mild wall thickening of the inferior rectum and anal canal which may be accentuated by decompression. Small hiatal hernia with mild esophageal wall thickening of the lower esophagus. Recommend correlation for esophagitis. Leiomyomatous uterus. Incidental and chronic findings as above. THIS IS AN ELECTRONICALLY VERIFIED FINAL REPORT 03/26/2024 10:21 AM - Electronically signed by Jermaine HUFF T: Report ID: [id number] Reading Location: [place] [address] Procedure Note Jermaine Weiner MD - 03/26/2024 EXAM DESCRIPTION: CT ABDOMEN PELVIS W CONTRAST REASON FOR STUDY: perirectal abcess Perirectal abscess. chronic boils and new onset of boil this MondayPt states, I was getting ready to go to the hospital and it is in the crackof my behind and it busted, and I went to [facility] and they didn't give me antibiotics and told me to go to the hospital Endorses: active drainage from site (blood and pus per patient) Denies: n/v/d, urinary complaints, fevers/chills, abdominal pain Hx: A-fib, HTN TECHNIQUE: CT scan of the abdomen and pelvis performed with intravenousand without oral contrast using helical scanning technique with dynamic intravenous contrast injection. Reconstructed coronal and sagittal MPRimages reviewed. All images stored on PACS. Automated exposure control was usedas a dose optimization technique for this examination. CONTRAST TYPE/DOSE: 100mL of IOVERSOL 350 MG IODINE/ML INTRAVENOUSSYRINGE injected via intravenous COMPARISON: None REFERENCE: Per ACR white paper recommendations, unless otherwise specifiedno follow-up imaging is recommended for incidental renal and adrenal lesionsper consensus recommendations based on imaging criteria. Further labevaluation could be pursued based on clinical findings. FINDINGS: LOWER CHEST: Borderline cardiomegaly. Small hiatal herniawith mild esophageal wall thickening of the lower esophagus. Small calcified pulmonary nodules, likely sequela of previous granulomatous disease. LIVER: No concerning lesions. GALLBLADDER/BILE DUCTS: Mildly distended thin-walled gallbladder. No radiopaque cholelithiasis or adjacent inflammatory changes. SPLEEN: Normal size. No focal concerning lesions. PANCREAS: No significant ductal dilatation or discrete lesion. ADRENALS: Trace nonspecific left periadrenal stranding. No discretenodule. KIDNEYS/URETERS: Subcentimeter low-attenuation lesions which are toosmall to further characterize and do not require imaging follow-up (Bosniak II).No hydronephrosis. BLADDER/URINARY: No significant wall thickening. 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 No concerning adnexal lesion, although the ovaries are poorly evaluated by CT. GASTROINTESTINAL: Mild wall thickening of the inferior rectum and analcanal although likely accentuated by decompression. Trace adjacent presacraledema. Mild edematous appearance of the anal verge with mild soft tissue andskin thickening of the adjacent perineum. No organized drainable fluidcollection. No subcutaneous emphysema. No significant bowel wall thickening. Nobowel obstruction. Unremarkable appearance of the appendix. Mild loweresophageal wall thickening as above. LYMPH NODES: Mildly prominent iliac chain and retroperitoneal lymph nodes which are nonspecific and possibly reactive. No pathologically enlarged lymphadenopathy. PERITONEUM/RETROPERITONEUM: No ascites or free air. VASCULATURE: Multifocal atherosclerotic changes of the abdominal aortaand its major branches. No abdominal aortic aneurysm. MUSCULOSKELETAL: Soft tissue and skin thickening of the anal verge and adjacent perineum as above. No organized drainable fluid collection.Tiny supraumbilical and periumbilical fat containing hernias. Multilevel degenerative changes of the visualized spine. No aggressive appearingosseous lesions. No acute osseous abnormality. Grade 1 anterolisthesis of L3 onL4. High-grade neural foraminal narrowing L3-S1. OTHER: No significant abnormality. IMPRESSION: Mild edematous appearance of the anal verge and adjacent perineum withmild soft tissue and skin thickening. No organized drainable fluid collection.No subcutaneous emphysema. Recommend correlation with physical examination. Mild wall thickening of the inferior rectum and anal canal which may be accentuated by decompression. Small hiatal hernia with mild esophageal wall thickening of the lower esophagus. Recommend correlation for esophagitis. Leiomyomatous uterus. Incidental and chronic findings as above. THIS IS AN ELECTRONICALLY VERIFIED FINAL REPORT 03/26/2024 10:21 AM - Electronically signed by Jermaine HUFF T: Report ID: [id number] Reading Location: [id number] IMG CT PROCEDURES Final Resul t * Sepsis Lactate w/ Reflex (03/26/2024 8:33 AM DEVELOPMENT CONSULTANT) Sepsis Lactate 1.2 0.7 - 2.0 mmol/L Blood 03/26/2024 8:33 AM DEVELOPMENT CONSULTANT 03/26/2024 8:44 AM DEVELOPMENT CONSULTANT Rehab Alexis MAYO LAB BLOOD ORDERABLES Final Resu lt Performing Organization Address [facility] Co de Phone Number CLYDE [address] [place] [address] * (ABNORMAL) eGFR (03/26/2024 8:11 AM DEVELOPMENT CONSULTANT) [facility] eGFR 47(L) >=60 mL/min/1. 73 m2 Comment: Interpretive Data Reference Interval Normal >/= 90 mL/min/1.73m2 Mildly decreased* 60 - 89 mL/min/1.73m2 Mildly to moderately decreased 45 - 59 mL/min/1.73m2 Moderately to severely decreased 30 - 44 mL/min/1.73m2 Severely decreased 15 - 29 mL/min/1.73m2 Kidney Failure < 15 mL/min/1.73m2 *Relative to young adult level Estimated glomerular filtration rate is determined by the 2020 CKD-EPI equation recommended by the National Kid[employer] (A Unifying Approach to GFR Estimation: Recommendations of the NKF-ASK Task Force on Reassessing the Inclusion of Race in Diagnosing Kidney Disease, JASN 2020). The CKD-EPI equation should not be used for patients with unstable renal function and has not been validated in children and those over 70. Current interpretive data was last reviewed 2020. Blood 03/26/2024 8:11 AM DEVELOPMENT CONSULTANT 03/26/2024 8:14 AM DEVELOPMENT CONSULTANT Brooklynnab Alexis MAYO LAB BLOOD ORDERABLES Final Resu lt Performing Organization Address [facility]/ZIP Co de Phone Number CLYDE [address] [place] [address] * (ABNORMAL) Differential, auto (03/26/2024 8:11 AM DEVELOPMENT CONSULTANT) Pathologist [facility] Neutrophil abs 10.4(H) 1.5 - 6.5 K/cumm Imm gran abs 0.1 0.0 - 0.1 K/cumm [facility] Lymphocyte abs 2.5 0.8 - 3.3 K/cumm [facility] Monocyte abs 2.0(H) 0.2 - 0.8 K/cumm [facility] Eosinophil abs 0.2 0.0 - 0.5 K/cumm [facility] Basophil abs 0.1 0.0 - 0.1 K/cumm [facility] Neutrophil pct 68.7 % [facility] Comment: Interpretive Data Percent cell count reference ranges are not reported, since discordance with absolute values may lead to misinterpretation of CBC data. Current Interpretive Data was last revised on 2017. Imm gran pct 0.4 % [facility] Comment: Interpretive Data Percent cell count reference ranges are not reported, since discordance with absolute values may lead to misinterpretation of CBC data. Current Interpretive Data was last revised on 2017. Lymphocyte pct 16.4 % [facility] Comment: Interpretive Data Percent cell count reference ranges are not reported, since discordance with absolute values may lead to misinterpretation of CBC data. Current Interpretive Data was last revised on 2017. Monocyte pct 12.9 % [facility] Comment: Interpretive Data Percent cell count reference ranges are not reported, since discordance with absolute values may lead to misinterpretation of CBC data. Current Interpretive Data was last revised on 2017. Eosinophil pct 1.3 % [facility] Comment: Interpretive Data Percent cell count reference ranges are not reported, since discordance with absolute values may lead to misinterpretation of CBC data. Current Interpretive Data was last revised on 2017. Basophil pct 0.3 % [facility] Comment: Interpretive Data Percent cell count reference ranges are not reported, since discordance with absolute values may lead to misinterpretation of CBC data. Current Interpretive Data was last revised on 2017. Blood 03/26/2024 8:11 AM DEVELOPMENT CONSULTANT 03/26/2024 8:14 AM DEVELOPMENT CONSULTANT us Rehab Alexis MAYO LAB BLOOD ORDERABLES Final Resu lt CLYDE [address] [facility] Department [place] [address] * (ABNORMAL) CBC with auto differential (03/26/2024 8:11 AM DEVELOPMENT CONSULTANT) [facility] WBC 15.1(H) 3.8 - 9.9 K/cumm Hgb 10.9(L) 11.9 - 15.5 g/dL [facility] Hct 33.1(L) 35.6 - 45.5 % [facility] Plt 236 150 - 400 K/cumm [facility] MPV 11.7 9.1 - 12.3 fL [facility] RBC 4.34 3.90 - 5.20 M/cumm [facility] MCV 76.3(L) 81.3 - 96.4 fL [facility] MCH 25.1(L) 27.1 - 33.3 pg [facility] MCHC 32.9 32.3 - 35.7 g/dL [facility] RDW CV 15.7(H) 11.1 - 14.9 % [facility] RDW SD 43.2 35.7 - 48.1 fL [facility] NRBC abs 0.00 0.00 - 0.01 K/cumm [facility] Blood 03/26/2024 8:11 AM DEVELOPMENT CONSULTANT 03/26/2024 8:14 AM DEVELOPMENT CONSULTANT us Rehab Alexis MAYO LAB BLOOD ORDERABLES Final Resu lt [facility] [address] [facility] [place] [address] * (ABNORMAL) Comprehensive metabolic panel (03/26/2024 8:11 AM DEVELOPMENT CONSULTANT) [facility] Sodium 145 135 - 145 mmol/L Potassium, pl 3.5 3.3 - 4.9 mmol/L [facility] Chloride 108 97 - 110 mmol/L [facility] CO2 26 22 - 32 mmol/L [facility] Anion gap 11 2 - 15 mmol/L [facility] BUN 14 6 - 25 mg/dL [facility] Creatinine 1.27(H) 0.60 - 1.10 mg/dL [facility] Glucose 146 70 - 199 mg/dL [facility] Comment: Interpretive Data Fasting glucose >/= 126 mg/dl is diagnostic for diabetes. Fasting is defined as no caloric intake for at least 8 hours. Fasting glucose between 100 mg/dl to 125 mg/dl is diagnostic of prediabetes. In a patient with classic symptoms of hyperglycemia or hyperglycemic crisis, a random glucose >/= 200 mg/dl is diagnostic for diabetes. In the absence of unequivocal hyperglycemia, results should be confirmed by repeat testing. The classification and Diagnosis of Diabetes Diabetes Care 2021; 46: S19-S40. Current interpretive data was last revised 2022. Calcium 10.3 8.5 - 10.3 mg/dL [facility] Bilirubin, total 0.5 0.1 - 1.2 mg/dL [facility] Protein, pl 8.0 6.5 - 8.5 g/dL [facility] Albumin 4.0 3.5 - 5.0 g/dL [facility] Alk phos 83 40 - 130 Units/L [facility] ALT 29 7 - 45 Units/L [facility] AST 29 10 - 45 Units/L [facility] Blood 03/26/2024 8:11 AM DEVELOPMENT CONSULTANT 03/26/2024 8:14 AM DEVELOPMENT CONSULTANT Black Espinoza MD LAB BLOOD ORDERABLES Final Resu lt CLYDE LANGFORD [address] [facility] Department [place] [address] * POCT lipid panel (03/13/2024 2:46 PM DEVELOPMENT CONSULTANT) Cholesterol, POC 222 mg/dL HDL, POC 64 mg/dL Triglycerides, POC 129 mg/dL LDL Cholesterol POC 131 mg/dL Chol/HDL Ratio, POC 2.0 Non-HDL Cholesterol, POC 157 mg/dL Cholesterol Total, POC 222 mg/dL Capillary blood 03/13/2024 2 :46 PM DEVELOPMENT CONSULTANT Hoda Aguila NP POINT OF CARE TEST ORDERABLE S Final Result from Last 3 Months Insurance MEDICARE [facility] Care Teams Hydro Excavation Operator Relationship Specialty Start Date End Date Maru Winston PA [facility] [place] [address] PCP - General Physician Director Of Application Development 08/19/22
--- OUTSIDE RECORDS SUMMARY | 2024-06-03 15:38 | XMS_ITS ---
Author Organization [facility] Address [address] [place], [place] [id number] Care Team Providers Care Res Habilitation Assistant Name Role Phone NEO CONNER Unavailable [phone] Maru Winston Unavailable Unavailable REASON FOR VISIT *General care Encounters Encounter Location Date Provider Diagnosis [facility] [place] [address] [facility] [address] [place], [place] [id number] 09/18/2023 NEO CONNER Plan Of Treatment No Information Progress Notes * ANANYA JACKSONDOB: 0 (63 yo F)Acc No.[id number]:09/18/2023 Patient: ANANYA ESTRADA Provider: Anthony Conner DPM :1960 A ge:62 Y S ex:Female Date:09/18/2023 Address:[address] [place] [address] [address] [facility] Subjective: * Chief Complaints: * 1 . *General care. * Medical History: Objective: * Vitals: Assessment: Plan: * Treatment: * Billing Information: * Visit Code: * Procedure Codes: * Electronic signature of NEO CONNER DPM on 06/03/2024 at 03:38 PM CDT Sign off status: Pending * Provider: Anthony Conner DPM Date: 0 09/18/2023 Generated for Printi ng/Faxing/eTransmitting on: 0 06/03/2024 03:38 PM CDT
--- OUTSIDE RECORDS SUMMARY | 2024-06-03 15:38 | XMS_ITS | Referral Summary ---
Author Organization [facility] Medical Office Building [address] Address [address] [place] [address] Care Team Providers Care Salt Cutter Name Role Phone Maru Winston Primary Care Provider [phone] Encounters Date Type Department Care Team Description 03/26/2024 9:08 AM [facility] - 03/26/2024 1:53 PM [facility] Emergency [place] [id number] [place] [address] Perianal abscess (Primary Dx) Discharge Disposition: Discharge to home or self care 03/13/2024 2:30 PM [facility] [employer] Office Visit [facility] [address] [place] [address] Hoda Aguila NP Lipid screening (Primary Dx); Paroxysmal atrial fibrillation (HCC) from Last 3 Months Allergies Active Allergy Reactions Criticality Noted Date [...] Date Diagnosed Date Paroxysmal atrial fibrillation 11/29/2018 Social History Tobacco Use Types Packs/Day Years [...] on file Sexual Orientation Not on file Last Filed Vital Signs Vital Sign Reading Time Taken Comments Blood Pressure 122/68 03/26/2024 1:30 PM [facility] [employer] Pulse 88 03/26/2024 1:30 PM [facility] [employer] Temperature 36.8 C (98.3 F) 03/26/2024 8:00 AM [facility] [employer] Respiratory Rate 16 03/26/2024 1:30 PM [facility] [employer] Oxygen Saturation 100% 03/26/2024 1:30 PM [facility] [employer] Inhaled Oxygen Concentration - - Weight 114.6 kg (252 lb 10.4 oz) 03/26/2024 8:08 AM [facility] [employer] Height 172.7 cm (5' 8 ) 03/26/2024 8:00 AM [facility] [employer] Body Mass Index 38.41 03/26/2024 8:00 AM [facility] [employer] Plan of Treatment Not on file Procedures Procedure Name Priority Date/Time Associated Diagnosis Comments AEROBIC AND ANAEROBIC CULTURE AND GRAM STAIN Routine 03/26/2024 12:21 PM [facility] [employer] POCT GLUCOSE DEVICE Routine 03/26/2024 1 1:56 AM [facility] [employer] BLOOD CULTURE STAT 03/26/2024 9:42 AM [facility] [employer] BLOOD CULTURE STAT 03/26/2024 9:[address] [facility] [employer] [address] [address] ABDOMEN PELVIS W CONTRAST ED 03/26/2024 9:39 AM [facility] [employer] SEPSIS LACTATE WITH REFLEX STAT 03/26/2024 8:33 AM [facility] [employer] EGFR STAT 03/26/2024 8:11 AM [facility] [employer] DIFFERENTIAL AUTO STAT 03/26/2024 8:1 1 AM [facility] [employer] CBC WITH AUTO DIFFERENTIAL STAT 03/26/2024 8:11 AM [facility] [employer] COMPREHENSIVE METABOLIC PANEL STAT 03/26/2024 8:11 AM [facility] [employer] POCT LIPID PANEL Routine 03/13/2024 2:46 PM [facility] [employer] Lipid screening from Last 3 Months Results * (ABNORMAL) Aerobic and anaerobic culture and gram stain Abscess Anal (03/26/2024 12:21 PM [facility] [employer]) Direct Specimen Exam Stain: Few polymorphonuclear leukocytes seen. Few Gram Positive Cocci Rare Gram Positive Bacilli Rare Gram Negative Bacilli Comment:Testing performed by : [facility], [address] [place]., [address] Report Final Report: Few Mixed aerobic and anaerobic microorganisms (.) CLYDE LANGFORD Comment:Testing performed by : [facility], [address] [place]., [address] Organism MIXED AEROBIC AND ANAEROBIC MICROORGANISMS CLYDE Abscess (Anal) 03/26/2024 12 :21 PM [facility] [employer] 03/26/2024 3:41 PM [facility] [employer] Narrative CLYDE - 03/31/2024 3:01 PM [facility] [employer] Specimen received on an ESwab. Testing performed by [facility] ([phone]) Specimens submitted from normally sterile body sites [...] - GENERAL OR DERABLES Final Result CLYDE [facility] [place] [address] * POCT glucose (03/26/2024 11:56 AM [employer] [employer]) Glucose, POC 112 70 - 199 mg/dL Blood 03/26/2024 11:5 6 AM [facility] [employer] 03/26/2024 11:56 AM [facility] [employer] us Notinfile Unknown LAB POCT ORDERABLES - DEVICE F inal Result CLYDE [facility] [place] [address] * Blood culture Blood Peripheral (03/26/2024 9:42 AM [facility] [employer]) Pathologist [facility] Report Final Report: No growth Comment:Testing performed by : [facility], [address] [place]., [address] Blood (Peripheral) 03/26/2024 9:42 AM [facility] [employer] 03/26/2024 11:09 AM [facility] [employer] Narrative [facility] - 03/30/2024 12:00 PM [facility] [employer] From a different site than #1. Draw [...] performance characteristics have been verified by the [facility]. For questions about this culture, contact the Microbiology Laboratory at [phone]. Interpretive data was last revised on 23. Jenifer ANDERSON LAB MICROBIOLOGY - GENERAL OR DERABLES Final Result CLYDE [address] [facility] Department [place] [address] * Blood culture Blood Peripheral (03/26/2024 9:40 AM [facility] [employer]) Report Final Report: No growth Comment:Testing performed by : [facility], [address] [place]., [address] Blood (Peripheral) 03/26/2024 9:40 AM [facility] [employer] 03/26/2024 11:09 AM [facility] [employer] Narrative CLYDE - 03/30/2024 12:00 PM [facility] [employer] Draw Blood cultures before administration of Antibiotics [...] performance characteristics have been verified by the [facility]. For questions about this culture, contact the Microbiology Laboratory at [phone]. Interpretive data was last revised on 23. Jenifer ANDERSON LAB MICROBIOLOGY - GENERAL OR DERABLES Final Result CLYDE [address] [facility] Department [place] [address] * CT Abdomen Pelvis W Contrast (03/26/2024 9:39 AM [facility] [employer]) Anatomical Region Laterality Modality Body N/A Computed Tomogra phy 03/26/2024 10:0 9 AM [facility] [employer] Narrative 03/26/2024 10:21 AM [facility] [employer] EXAM DESCRIPTION: CT ABDOMEN PELVIS W CONTRAST REASON FOR STUDY: perirectal abcess Perirectal abscess. chronic boils and new onset of boil this Monday Pt states, I was getting ready to go to the hospital and it is in the crack of my behind and it busted, and I went to [facility] and they didn't give me antibiotics and [...] signed by Jermaine HUFF T: Report ID: [id number] Reading Location: [id number] Procedure Note Jermaine Weiner MD - 03/26/2024 EXAM DESCRIPTION: CT ABDOMEN PELVIS W CONTRAST REASON FOR STUDY: perirectal abcess Perirectal abscess. chronic boils and new onset of boil this MondayPt states, I was getting ready to go to the hospital and it is in the crackof my behind and it busted, and I went to [facility] and they didn't give me antibiotics and [...] 10:21 AM - Electronically signed by Jermaine Weiner M.D. NS T: Report ID: [id number] Reading Location: [place] [address] PROCEDURES Final Resul t * Sepsis Lactate w/ Reflex (03/26/2024 8:33 AM [facility] [employer]) Pathologist [facility] Sepsis Lactate 1.2 0.7 - 2.0 mmol/L Blood 03/26/2024 8:33 AM [facility] [employer] 03/26/2024 8:44 AM [facility] [employer] Rehab Alexis MAYO LAB BLOOD ORDERABLES Final Resu lt CLYDE [address] [facility] Department of Laboratories [place], [place] [id number] * (ABNORMAL) eGFR (03/26/2024 8:11 AM [employer]) Pathologist [facility] eGFR 47(L) >=60 mL/min/1. 73 m2 Comment: [...] last reviewed 2020. Blood 03/26/2024 8:11 AM [facility] [employer] 03/26/2024 8:14 AM [employer] us Rehab Alexis MAYO LAB BLOOD ORDERABLES Final Resu lt [facility] [address] [facility] Department [place] [address] * (ABNORMAL) Differential, auto (03/26/2024 8:11 AM [employer] [employer]) Pathologist [facility] Neutrophil abs 10.4(H) 1.5 - 6.5 K/cumm Imm gran abs 0.1 0.0 - 0.1 K/cumm [facility] Lymphocyte abs 2.5 0.8 - 3.3 K/cumm [facility] Monocyte abs 2.0(H) 0.2 - 0.8 K/cumm [facility] Eosinophil abs 0.2 0.0 - 0.5 K/cumm [facility] Basophil abs 0.1 0.0 - 0.1 K/cumm [facility] Neutrophil pct 68.7 % [facility] Comment: Interpretive Data Percent cell count reference ranges are not reported, since discordance with absolute values may lead to misinterpretation of CBC data. Current Interpretive Data was last revised on 2017. Imm gran pct 0.4 % [facility] Comment: Interpretive Data Percent cell count reference ranges are not reported, since discordance with absolute values may lead to misinterpretation of CBC data. Current Interpretive Data was last revised on 2017. Lymphocyte pct 16.4 % [facility] Comment: Interpretive Data Percent cell count reference ranges are not reported, since discordance with absolute values may lead to misinterpretation of CBC data. Current Interpretive Data was last revised on 2017. Monocyte pct 12.9 % [facility] Comment: Interpretive Data Percent cell count reference ranges are not reported, since discordance with absolute values may lead to misinterpretation of CBC data. Current Interpretive Data was last revised on 2017. Eosinophil pct 1.3 % [facility] Comment: Interpretive Data Percent cell count reference ranges are not reported, since discordance with absolute values may lead to misinterpretation of CBC data. Current Interpretive Data was last revised on 2017. Basophil pct 0.3 % [facility] Comment: Interpretive Data Percent cell count reference ranges are not reported, since discordance with absolute values may lead to misinterpretation of CBC data. Current Interpretive Data was last revised on 2017. Blood 03/26/2024 8:11 AM [facility] [employer] 03/26/2024 8:14 AM [employer] [employer] us Rehab Alexis MAYO LAB BLOOD ORDERABLES Final Resu lt [facility] [address] [facility] Department [place] [address] * (ABNORMAL) CBC with auto differential (03/26/2024 8:11 AM LIBRARIAN [employer]LE[employer]) WBC 15.1(H) 3.8 - 9.9 K/cumm Hgb 10.9(L) 11.9 - 15.5 g/dL [facility] Hct 33.1(L) 35.6 - 45.5 % [facility] Plt 236 150 - 400 K/cumm [facility] MPV 11.7 9.1 - 12.3 fL [facility] RBC 4.34 3.90 - 5.20 M/cumm [facility] MCV 76.3(L) 81.3 - 96.4 fL [facility] MCH 25.1(L) 27.1 - 33.3 pg [facility] MCHC 32.9 32.3 - 35.7 g/dL [facility] RDW CV 15.7(H) 11.1 - 14.9 % [facility] RDW SD 43.2 35.7 - 48.1 fL [facility] NRBC abs 0.00 0.00 - 0.01 K/cumm [facility] Blood 03/26/2024 8:11 AM [facility] [employer] 03/26/2024 8:14 AM [employer] [employer] us Rehab Alexis MAYO LAB BLOOD ORDERABLES Final Resu lt [facility] [address] [facility] Department [place] [address] * (ABNORMAL) Comprehensive metabolic panel (03/26/2024 8:11 AM [employer]) Sodium 145 135 - 145 mmol/L Potassium, pl 3.5 3.3 - 4.9 mmol/L [facility] Chloride 108 97 - 110 mmol/L [facility] CO2 26 22 - 32 mmol/L [facility] Anion gap 11 2 - 15 mmol/L [facility] BUN 14 6 - 25 mg/dL [facility] Creatinine 1.27(H) 0.60 - 1.10 mg/dL [facility] Glucose 146 70 - 199 mg/dL [facility] Comment: Interpretive Data Fasting glucose >/= 126 [...] 2022. Calcium 10.3 8.5 - 10.3 mg/dL [facility] Bilirubin, total 0.5 0.1 - 1.2 mg/dL [facility] Protein, pl 8.0 6.5 - 8.5 g/dL [facility] Albumin 4.0 3.5 - 5.0 g/dL [facility] Alk phos 83 40 - 130 Units/L [facility] ALT 29 7 - 45 Units/L [facility] AST 29 10 - 45 Units/L [facility] Blood 03/26/2024 8:11 AM [facility] [employer] 03/26/2024 8:14 AM [employer] Rehab Alexis MAYO LAB BLOOD ORDERABLES Final Resu lt CLYDE LANGFORD [address] [facility] Department [place] [address] * POCT lipid panel (03/13/2024 2:46 PM [facility] [employer]) Cholesterol, POC 222 mg/dL HDL, POC 64 mg/dL Triglycerides, POC 129 mg/dL LDL Cholesterol POC 131 mg/dL Chol/HDL Ratio, POC 2.0 Non-HDL Cholesterol, POC 157 mg/dL Cholesterol Total, POC 222 mg/dL Capillary blood 03/13/2024 2 :46 PM [facility] [employer] Hoda Aguila NP POINT OF CARE TEST ORDERABLE S Final Result from Last 3 Months Insurance MEDICARE [facility] Care Teams Salt Cutter Relationship Specialty Start Date End Date Maru Winston PA [address] [place], [place] [address] [place] [address] PCP - General Physician Barratte Operator 08/19/22
--- OUTSIDE RECORDS SUMMARY | 2024-06-03 15:38 | XMS_ITS ---
Author Organization [facility] Address [address] [place], [place] [id number] Care Team Providers Care Deployment Engineer Name Role Phone NEO CONNER Unavailable [phone] Maru Winston Unavailable Unavailable Medications Medication SIG (Take, Route, Fr equency, Duration) Notes Start Date End Date Status Clotrimazole 1 % [address] Helper ally once a day to toenails for 30 days 04/09/2024 10/06/2024 Acti ve Encounters Encounter Location Date Provider Diagnosis [facility] [place] [address] [facility] [address] [place], [place] [id number] 04/09/2024 NEO CONNER Plan Of Treatment Medication Medication Name Sig Start Date Stop Date Notes Clotrimazole 1 % [address] Painter Helper ally once a day to toenails for 30 days 04/09/2024 10/06/2024 Progress Notes * ANANYA JACKSONDOB: 0 (63 yo F)Acc No.[id number]:04/09/2024 Patient: ANANYA ESTRADA :1960 A ge:63 Y S ex:Female Address:[address] [place] [address] [address], [place] [address] * Refills Start Clotrimazole Solution, 1 %, Externally, 1, 1 application, once a day to toenails, 30 days, Refills=5 * true * Date: Generated for Printi ng/Fasharong/eTransmitting on: 0 06/03/2024 03:38 PM CDT
--- OUTSIDE RECORDS SUMMARY | 2024-06-03 15:38 | XMS_ITS | Clinical Summary ---
Author Organization [facility] Address [address] [place] [address] Care Team Providers Care Straight Cutter Name Role Phone Unavailable Primary Care Provider Unavailabl e Allergies Active Allergy Reactions Criticality Noted Date Comments Ampicillin Hives 08/19/2017 Medications ibuprofen 600 MG tablet Take 1 tablet (600 mg total) by mouth every 8 (eight) hours as needed for Pain. 21 tablet 08/19/2017 Active Active Problems No known active problems Social History Tobacco Use Types Packs/Day Years Used Date Smoking Tobacco: Never Assessed Comments Unknown Sex and Gender Information Value Date Recorded Sex Assigned at Not on file Legal Sex Female 1:25 PM CDT Gender Identity Not on file Sexual Orientation Not on file Last Filed Vital Signs Vital Sign Reading Time Taken Comments Blood Pressure 148/81 08/19/2017 2:45 PM CDT Pulse 88 08/19/2017 2:45 PM CDT Temperature 36.4 C (97.6 F) 08/19/2017 1:39 PM CDT Respiratory Rate 20 08/19/2017 2:45 PM CDT Oxygen Saturation 95% 08/19/2017 2:45 PM CDT Inhaled Oxygen Concentration - - Weight 113.2 kg (249 lb 9.6 oz) 08/19/2017 1:39 PM CDT Height 172.7 cm (5' 8 ) 08/19/2017 1:39 PM CDT Body Mass Index 37.95 08/19/2017 1:39 PM CDT Plan of Treatment Health Maintenance Due Date Last Done Comments Cervical Cancer Screening Pa p Smear (Age 30 to 64) Every 3 Years 1960 Colorectal Cancer Screening Colonoscopy (10 Years) 1960 Annual Physical 09/20/1962 Hepatitis C 09/20/1977 DTaP, Tdap and Td Vaccines ( 1 - Tdap) 09/20/1978 Cervical Cancer Screening Pa p with HPV Testing (Age 30 to 64) Every 5 Years 09/20/1989 Cervical Cancer Screening with HPV 09/20/1989 Mammogram Screening 1999 Pneumococcal Vaccine: 50+ Ye ars (1 of 1 - PCV) 09/20/2009 Zoster Vaccines (1 of 2) 09/20/2009 COVID-19 Vaccine (1 - 2023-2 5 season) 2023 RSV Immunization or 60+ Years (1 - 1-dose 75+ series) 09/20/2034 Meningococcal B Vaccine Aged Out No l onger eligible based on patient's age to complete this topic Meningococcal Vaccine Aged Out No jerica juan eligible based on patient's age to complete this topic RSV Immunizations Under 20 Months Aged Out No longer eligible based on patient's age to complete this topic Insurance MEDICARE MEDICAID
--- OUTSIDE RECORDS SUMMARY | 2024-06-03 15:38 | XMS_ITS ---
Author Organization [facility] Address [address] [place], [place] [id number] Care Team Providers Care Logging Equipment Mechanic Name Role Phone NEO CONNER Unavailable [phone] Maru Winston Unavailable Unavailable REASON FOR VISIT *General care Encounters Encounter Location Date Provider Diagnosis [facility] [place] [address] [place], [place] [id number] 09/25/2023 NEO CONNER Plan Of Treatment No Information Progress Notes * ANANYA JACKSONDOB: 0 (63 yo F)Acc No.[id number]:09/25/2023 Patient: ANANYA ESTRADA Provider: Anthony Conner DPM :1960 A ge:63 Y S ex:Female Date:09/25/2023 Address:[address] [place] [address] [address] [facility] Subjective: * Chief Complaints: * 1 . *General care. * Medical History: Objective: * Vitals: Assessment: Plan: * Treatment: * Billing Information: * Visit Code: * Procedure Codes: * Electronic signature of NEO CONNER DPM on 06/03/2024 at 03:38 PM CDT Sign off status: Pending * Provider: Anthony Conner DPM Date: 0 09/25/2023 Generated for Printi ng/Faxing/eTransmitting on: 0 06/03/2024 03:38 PM CDT
--- OUTSIDE RECORDS SUMMARY | 2024-06-03 15:39 | XMS_ITS | Data Portability ---
Author Organization [facility] [place] Address [address] [place] [address] [place] [address] Assessment Encounter Date Assessment Date Assessment LastModified by Organization Details LastModified Time 06/21/2022 06/21/2022 Annual gynecological exam performed. Patient will come back in a year unless there are new symptoms. Not available 06/21/2022 12:14:43 Plan of Treatment Reminders Order Date Submit Date Provider Last Modified By Organization Details Last Modified Time Details Appointments None recorded . Lab None recorded . Referral None recorded . Procedures None recorded . Surgeries None recorded . Imaging US, pelvis, complete 2022 023 [email or web address] [place], [facility] [address], [address], [place], [address], 3 16:27:33 MAMMO, screenin g, bilatera l 2022 023 [facility], [address], [address], [place], [address], 3 05:01:15 US, pelvis 2019 020 [email or web address] [place], [facility] [address], [address], [place], [address], 0 20:04:29 US, transvag inal 2019 020 AVELINO [place], [address], [address], [place], [address], 0 05:02:06 Medication Orders None recorded . Patient TargetsNo targets recorded. Patient InstructionsNo instructions recorded. Reason for Referral None Reported. Results Created Date Observation Date Name Description Value Unit Range Abnormal Flag Note LastModifiedBy Organization Detail LastModifiedTime 07/19/19 20 07/20/2019 bacte rial vagin osis + vagin itis panel , vagin al trichomonas vaginalis, aptima (panther) NOT DETECT ED normal Trich omona s vagin nancie: DNA testi ng perfo rmed by Trans cript ion Media chio Ampli ficat ion (TMA) These resul ts shoul d be inter prete d in light of all clini braulio and labor atory findi ngs. This assay is highl y accur ate, but rare false posit wilfred and negat wilfred resul ts may occur . Posit wilfred resul ts in low preva lence popul ation s may requi re re-ev aluat ion. A negat wilfred resul t does not precl ude a possi ble infec tion due to a speci men inade quacy or sampl ing error . Test perfo rmed by [facility], d/b/a [facility], [address] , [facility] [place] [address] , Amanda Mitchell ra, DO, Labor atory Direc tor. Gardn erell a vagin nancie, Mei da speci es: Genom ic DNA is isola chio from patie nt speci mens by stand ramesh labor atory techn iques and peyman zed using custo m OpenA rray plate s, perfo rmed on the Quant Studi o 12K Flex Real Time PCR syste m. A posit wilfred resul t is provi ded for patho genic bacte jorge, virus and/o r funga l speci es based on detec tion of ampli ficat ion produ cts. Portia l vagin al lyric resul ts of Portia l or Ennis chio are deter mined by calcu latin g the ratio of the organ ism to the total bacte jorge prese nt in the speci men, and sabine ring that ratio to a PathG roup patie nt popul ation . Overa ll resul ts of Portia l, Borde rline and Abnor mal are deter mined using a proba bilit y model which was devel oped by an exten sive peyman sis and integ ratio n of clini braulio thres holds for marke r organ isms on a large set of sympt omati c & asymp tomat ic speci mens. Patie nt popul ation s with diffe rent demog raphi cs from the PathG roup model popul ation may have diffe rent indic ator organ isms with diffe rent relat wilfred ratio s, which would influ ence the final resul ts. Resul ts shoul d be inter prete d in the dex xt of all clini braulio and labor atory findi ngs. The test was devel oped and its perfo rmanc e sam cteri stics deter mined by [facility], [facility] d/b/a Path rou. It has not been clear ed or appro alisha by the U.S. Food and Drug Admin istra tion. The FDA has deter mined that such clear ance or appro ya is not neces danni. Perti nent refer ence inter vals are avail able from the mario atorhiram on reque st. Test( s) perfo rmed by [facility] [facility], [facility], d/b/a [facility], [address] [place] [address] , Amanda Mitchell ra, DO, Labor atory Direc tor. Not Available [facility] ([facility]) [address], [place], [address], 07/23/2019 18:55:07 07/19/19 20 07/23/2019 bacte rial vagin osis + vagin itis panel , vagin al corry sp. Not Detect ed normal Trich omona s vagin nancie: DNA testi ng perfo rmed by Trans cript ion Media chio Ampli ficat ion (TMA) These resul ts shoul d be inter prete d in light of all clini braulio and labor atory findi ngs. This assay is highl y accur ate, but rare false posit wilfred and negat wilfred resul ts may occur . Posit wilfred resul ts in low preva lence popul ation s may requi re re-ev aluat ion. A negat wilfred resul t does not precl ude a possi ble infec tion due to a speci men inade quacy or sampl ing error . Test perfo rmed by [facility], d/b/a PathG roup, [address], [facility] [place] [address] , Amanda Mitchell ra, DO, Labor atory Direc tor. Dorota canada, Mei da speci es: Genom ic DNA is isola chio from patie nt speci mens by stand ramesh labor atory techn iques and peyman zed using custo m OpenA rray plate s, perfo rmed on the [employer] Studi o 12K Flex Real Time PCR syste m. A posit wilfred resul t is provi ded for patho genic bacte jorge, virus and/o r funga l speci es based on detec tion of ampli ficat ion produ cts. Portia l vagin al lyric resul ts of Portia l or Ennis chio are deter mined by calcu latin g the ratio of the organ ism to the total bacte jorge prese nt in the speci men, and sabine ring that ratio to a PathG roup patie nt popul ation . Overa ll resul ts of Portia l, Borde rline and Abnor mal are deter mined using a proba bilit y model which was devel oped by an exten sive peyman sis and integ ratio n of clini braulio thres holds for marke r organ isms on a large set of sympt omati c & asymp tomat ic speci mens. Patie nt popul ation s with diffe rent demog raphi cs from the PathG roup model popul ation may have diffe rent indic ator organ isms with diffe rent relat wilfred ratio s, which would influ ence the final resul ts. Resul ts shoul d be inter prete d in the dex xt of all clini braulio and labor atory findi ngs. The test was devel oped and its perfo rmanc e sam cteri stics deter mined by [employer], [facility] d/b/a Path[facility] rou. It has not been clear ed or appro alisha by the U.S. Food and Drug Admin istra tion. The FDA has deter mined that such clear ance or appro ya is not neces danni. Perti nent refer ence inter vals are avail able from the labor atory on reque st. Test( s) perfo rmed by [employer], [facility], d/b/a Path rou, [address], [place] [address] , Amanda Mitchell ra, , Labor atory Dire tor. Not Available [facility] ([facility]) [address], [place], [address], 07/23/2019 18:55:07 07/19/19 20 07/23/2019 bacte rial vagin osis + vagin itis panel , vagin al gardnerella vaginalis Detect ed abnormal Trich omona s vagin nancie: DNA testi ng perfo rmed by Trans cript ion Media chio Ampli ficat ion (TMA) These resul ts shoul d be inter prete d in light of all clini braulio and labor atory findi ngs. This assay is highl y accur ate, but rare false posit wilfred and negat wilfred resul ts may occur . Posit wilfred resul ts in low preva lence popul ation s may requi re re-ev aluat ion. A negat wilfred resul t does not precl ude a possi ble infec tion due to a speci men inade quacy or sampl ing error . Test perfo rmed by [employer], [employer], d/b/a [facility], [address], [place] [address] , Prani l K. Stephen ra, DO, Labor atory Direc tor. Dorota brown a vagin nancie, Mei da speci es: Genom ic DNA is isola chio from patie nt speci mens by stand ramesh labor atory techn iques and peyman zed using custo m OpenA rray plate s, perfo rmed on the Quant Studi o 12K Flex Real Time PCR syste m. A posit wilfred resul t is provi ded for patho genic bacte jorge, virus and/o r funga l speci es based on detec tion of ampli ficat ion produ cts. Portia l vagin al lyric resul ts of Portia l or Ennis chio are deter mined by calcu latin g the ratio of the organ ism to the total bacte jorge prese nt in the speci men, and sabine ring that ratio to a PathG roup patie nt popul ation . Overa ll resul ts of Portia l, Borde rline and Abnor mal are deter mined using a proba bilit y model which was devel oped by an exten sive peyman sis and integ ratio n of clini braulio thres holds for marke r organ isms on a large set of sympt omati c & asymp tomat ic speci mens. Patie nt popul ation s with diffe rent demog raphi cs from the PathG roup model popul ation may have diffe rent indic ator organ isms with diffe rent relat wilfred ratio s, which would influ ence the final resul ts. Resul ts shoul d be inter prete d in the dex xt of all clini braulio and labor atory findi ngs. The test was devel oped and its perfo rmanc e sam cteri stics deter mined by [employer] [facility], [employer] d/b/a PathPanfil[facility] cifuentes. It has not been clear ed or appro alisha by the U.S. Food and Drug Admin istra tion. The FDA has deter mined that such clear ance or appro ya is not neces danni. Perti nent refer ence inter vals are avail able from the labor atory on reque st. Test( s) perfo rmed by [facility], d/b/a Martha cifuentes, [address], [place] [address] , Amanda Mitchell ra, DO, [facility]. Not Available [facility] ([facility]) [address], [place], [address], 07/23/2019 18:55:07 07/25/19 20 07/26/2019 ca 125, serum CA-125 8.6 U/mL <2-38. 1 Not Available [facility] ([facility]) [address], [place], [address], 07/26/2019 07:06:55 03/27/19 21 03/27/2020 US, mary jo cox md interpretati on Not Available [facility] [address], [place], [address], 07/25/2019 12:28:45 07/01/19 23 06/30/2022 CULTU RE: URINE result report SEE RESULT S BELOW Test: Cultu re: Urine Speci men Sourc e: Urine Voide d Speci men Type: Urine Speci men Date: 2022 3:55 PM Resul t Date: 2022 5:48 AM Resul t Statu s: Final resul t Abnor mal: No Resul ting Lab: [facility] [address] [address] Tel: CULTU RE ----- ----- ----- --- No growt h in 1 day (dete ction level of 10,00 0 colon ies / ml.) Not Available [facility] (Lab) [address], [place], [address], 07/02/2022 06:53:46 07/25/19 , mary jo cox No observ ation record ed. alex [address] [facility], [place], [address], 08/26/2019 13:30:27 Result Notes None recorded. Problems Name Problem SNOMED Code Status Onset Date Resolution Date Notes Provider Name and Address Organization Details Recorded Time Acute vaginitis 47298957 Active 2017 Acute vulvovagin itis;Recor ded Elsewhere: No Locatio n: [facility] rce: EHR Chroni c: N Practice ID: 0001 Billa ble Time: 02:30:00 PM Not Available [facility] 0 17:29:34 Pelvic and perineal pain 208054705 Active 2018 Pelvic and perineal pain;Recor ded Elsewhere: No Locatio n: [facility] rce: EHR Chroni c: N Practice ID: 0001 Billa ble Time: 02:30:00 PM Not Available [facility] 0 17:29:34 Syphilis test finding 336102364 Active 2017 Encounter for STD screening; Recorded Elsewhere: No Locatio n: [facility] rce: EHR Chroni c: N Practice ID: 0001 Billa ble Time: 02:30:00 PM Not Available [facility] 0 17:29:[address] Concept Active 2015 Encntr for general adult medical exam w/o abnormal findings;R ecorded Elsewhere: No Locatio n: [facility] rce: EHR Chroni c: N Practice ID: 0001 Billa ble Time: 02:30:00 PM Not Available [facility] 0 17:29:34 Screening for malignant neoplasm of cervix Active 2018 Encounter for screening for malignant neoplasm of cervix;Rec orded Elsewhere: No Locatio n: [facility] rce: EHR Chroni c: N Practice ID: 0001 Billa ble Time: 11:30:00 AM Not Available [facility] 0 17:29:35 Body mass index 30+ - obesity 442084917 Active 2018 Body mass index (BMI) 39.0-39.9, adult;Rishi rded Elsewhere: No Locatio n: [facility] rce: EHR Chroni c: N Practice ID: 0001 Billa ble Time: 11:30:00 AM Not Available [facility] 0 17:29:35 Specializ ed medical examinati on Active 2013 Gynecologi braulio Examinatio n;Recorded Elsewhere: No Locatio n: [facility] rce: EHR Chroni c: N Practice ID: 0001 Billa ble Time: 01:00:00 PM Not Available [facility] 0 17:29:[address] Concept Active 2018 Well woman check w/o abnormal finding;Re corded Elsewhere: No Locatio n: [facility] rce: EHR Chroni c: N Practice ID: 0001 Billa ble Time: 11:30:00 AM Not Available [facility] 0 17:29:35 Screening for malignant neoplasm of rectum Active 2015 Encounter for screening for malignant neoplasm of rectum;Rec orded Elsewhere: No Locatio n: [facility] rce: EHR Chroni c: N Practice ID: 0001 Billa ble Time: 11:30:00 AM Not Available [facility] 0 17:29:35 Adult health examinati on Active 2014 ROUTINE MEDICAL EXAM;Recor ded Elsewhere: No Locatio n: [facility] rce: EHR Chroni c: N Practice ID: 0001 Billa ble Time: 02:30:00 PM Not Available [facility] 0 17:29:35 Generaliz ed abdominal pain 850222693 Active 2015 Generalize d abdominal pain;Recor ded Elsewhere: No Locatio n: [facility] rce: EHR Chroni c: N Practice ID: 0001 Billa ble Time: 02:30:00 PM Not Available [facility] 0 17:29:35 Urinary tract infectiou s disease 67392112 Active 2017 UTI;Record ed Elsewhere: No Locatio n: [facility] rce: EHR Chroni c: N Practice ID: 0001 Billa ble Time: 11:00:00 AM Not Available [facility] 0 17:29:36 Increased frequency of urination 258485548 Active 2017 Frequency of micturitio n;Recorded Elsewhere: No Locatio n: [facility] rce: EHR Chroni c: N Practice ID: 0001 Billa ble Time: 11:00:00 AM Not Available [facility] 0 17:29:36 Neoplasti c disease of uncertain behavior 316212585 Active 2015 Neoplasm of uncertain behavior, unspecifie d;Recorded Elsewhere: No Locatio n: [facility] rce: EHR Chroni c: N Practice ID: 0001 Billa ble Time: 02:30:00 PM Not Available [facility] 0 17:29:36 At increased risk of sexually transmitt ed infection 545565870 Active 2013 Contact with or exposure to venereal diseases;R ecorded Elsewhere: No Locatio n: [facility] rce: EHR Chroni c: N Practice ID: 0001 Billa ble Time: 01:00:00 PM Not Available [facility] 0 17:29:36 Female genital organ symptoms 470745201 Active 2013 Unspecifie d symptom associated with female genital organs;Rec orded Elsewhere: No Locatio n: [facility] rce: EHR Chroni c: N Practice ID: 0001 Billa ble Time: 01:45:00 PM Not Available [facility] 0 17:29:36 Problem Notes None recorded. Procedures Surgical History Date Name Laterality Status Provider Name and Address Organization Details Recorded Time 02/13/19 23 Date of Last Colonoscopy completed Jennifer Etienne [facility] 06/21/2022 12:25:44 12/21/19 22 colonoscopy completed Kathy Uribe AYAN- [address], [place], [address], [facility] 06/21/2022 12:35:42 12/15/19 22 Date of Last Mammogram completed Jennifer Etienne [facility] 06/21/2022 12:25:28 03/14/19 19 Date of Last Pap Smear completed Jennifer Etienne [facility] 06/21/2022 12:03:55 07/14/18 82 Caesarean Section completed [facility] 06/21/2022 12:28:04 06/13/18 79 Caesarean Section completed [facility] 06/21/2022 12:27:59 06/13/18 78 Caesarean Section completed [facility] 06/21/2022 12:27:55 05/14/18 77 Caesarean Section completed [facility] 06/21/2022 12:27:51 Imaging Results Imaging Date Name Status LastModified by Organiz ation Details LastModified Time 07/25/2019 US, pelvis completed layran Shaneka [address], [place], [address], 08/26/2019 13:30:27 Procedure Notes None recorded. Medical Equipment None Reported. Allergies Allergen ID Allergen Name Allergen Category Reaction Reaction Severity Criticality Documentation Date Start Date Code Code System Note Provider Name and Address Organization Details Recorded Time 870 ampicilli n medicatio n Not available Not available Not available 07/19/2019 733 RxNorm Sepideh Valle [facility] 0 11:21:08 871 ciproflox acin medicatio n Not available Not available Not available 07/19/2019 2551 RxNorm Sepideh Valle [facility] 0 11:21:21 Medications Name Sig Start Date Stop Date Status Note LastModified by Organization Details LastModified Time atorvasta tin 80 mg tablet active Not Available Not Available Not Available doxycycli ne hyclate 100 mg capsule 06/21 completed Not Available Not Available Not Available atorvasta tin 10 mg tablet take 1 tablet by oral route every day 06/21 completed Prescrib ed Elsewher e: Yes Loca tion: Rafael [facility] odify By: lane Lockwood ncounter DateTime : 07/25/19 19 02:30:00 PM Not Available Not Available Not Available ibuprofen 800 mg tablet active Not Available Not Available Not Available metoprolo l succinate ER 50 mg tablet,ex tended release 24 hr active Not Available Not Available Not Available fluconazo le 200 mg tablet 06/21 completed Not Available Not Available Not Available metronida zole 0.75 % (37.5 mg/5 gram) vaginal gel Insert 1 applicat orful every day by vaginal route at bedtime for 5 days. 06/21 completed Not Available Not Available Not Available Diflucan 150 mg tablet take 1 tablet by oral route once 07/24 completed Prescrib ed Elsewher e: No [facility] By: lane Lockwood ncounter DateTime : 10/13/19 18 04:27:51 PM Not Available Not Available Not Available metronida zole 500 mg tablet Take 1 tablet every 12 hours by oral route for 7 days. 06/21 completed Not Available Not Available Not Available acyclovir 400 mg tablet take 1 tablet by oral route every 12 hours 06/21 completed Not Available Not Available Not Available glimepiri de 1 mg tablet active Not Available Not Available Not Available levothyro xine 100 mcg tablet active Not Available Not Available Not Available famotidin e 20 mg tablet 06/21 completed Not Available Not Available Not Available amlodipin e 10 mg tablet take 1 tablet by oral route every day 06/21 completed Prescrib ed Elsewher e: Yes Loca tion: Rafael [facility] odify By: lane Lockwood ncounter DateTime : 07/25/19 19 02:30:00 PM Not Available Not Available Not Available Cipro 500 mg tablet take 1 tablet by oral route every 12 hours 06/21 completed Prescrib ed Elsewher e: No [facility] By: ileana tz Chichoou nter DateTime : 07/25/19 19 02:30:00 PM Not Available Not Available Not Available ranitidin e 150 mg tablet 06/21 completed Not Available Not Available Not Available losartan 25 mg tablet TAKE 1 TABLET BY MOUTH EVERY DAY IN THE MORNING active Not Available Not Available No t Available hydrochlo rothiazid e 12.5 mg capsule Take 1 capsule every day by oral route. 06/21 completed Not Available Not Available Not Available gabapenti n 300 mg capsule 06/21 completed Not Available Not Available Not Available Valtrex 500 mg tablet take 1 tablet by oral route every day 06/21 completed Prescrib ed Elsewher e: No Locat ion: Oles[facility] fabi[facility] odify By: steph weiner DateTime : 12/22/19 17 02:14:51 PM Not Available Not Available Not Available zolpidem 10 mg tablet 06/21 completed Not Available Not Available Not Available ketoconaz ole 2 % topical cream APPLY TOPICALL Y THE AFFECTED AREA(S) ONCE A DAY FOR 6 WEEKS active Not Available Not Available No t Available Terazol 7 0.4 % vaginal cream insert 1 applicat orful by vaginal route every day for 7 days at bedtime 09/27 completed Prescrib ed Elsewher e: No [facility] odify By: jose roberto bonds DateTime : 09/22/19 16 04:05:06 PM Not Available Not Available Not Available fluoxetin e 20 mg capsule 06/21 completed Not Available Not Available Not Available fluticaso ne propionat e 50 mcg/actua tion nasal spray,nikolas pension SPRAY 1 SPRAY INTO EACH NOSTRIL ONCE A DAY active Not Available Not Available No t Available sertralin e 50 mg tablet 06/21 completed Not Available Not Available Not Available Bactrim DS 800 mg-160 mg tablet take 1 tablet by oral route every 12 hours 07/24 completed Prescrib ed Elsewher e: No Locat ion: Gelyjuan [facility] odify By: lane bonds DateTime : 10/07/19 18 11:00:00 AM Not Available Not Available Not Available One Daily Multivita min tablet take 1 tablet by oral route every day with food 2018 active Prescrib ed Elsewher e: Yes Loca tion: Rafael fabián [facility] odify By: lane bonds DateTime : 07/25/19 02:30:00 PM Not Available Not Available Not Available fenofibra te 160 mg tablet TAKE 1 TABLET BY MOUTH EVERY DAY WITH MEALS active Not Available Not Available No t Available atorvasta tin 06/21 completed Not Available Not Available Not Available acyclovir 06/21 completed Not Available Not Available Not Available amlodipin e 06/21 completed Not Available Not Available Not Available Valtrex 06/21 completed Not Available Not Available Not Available multivita min 06/21 completed Not Available Not Available Not Available Januvia 50 mg tablet 06/21 completed Not Available Not Available Not Available Januvia 100 mg tablet TAKE 1 TABLET BY MOUTH EVERY DAY IN THE MORNING active Not Available Not Available No t Available hydrochlo rothiazid e 12.5 mg tablet take 1 tablet by oral route every day 06/21 completed Prescrib ed Elsewher e: Yes Loca tion: [facility] M odify By: lane bonds DateTime : 07/25/19 02:30:00 PM Not Available Not Available Not Available Vitals Date Recorded Body height Body mass index (BMI) Body weight Systolic blood pressure Diastolic blood pressure Provider Name and Address Organization Details Last Updated DateTime 07/19/2019 2072.64 cm 0.3 kg/m2 888819.8 3 g 147 mm[Hg] 80 mm[Hg] Sepideh Valle [facility] 11:21:00 Date Recorded Body height Body mass index (BMI) Body weight Provider Name and Address Organization Details Last Updated DateTime 06/21/2022 172.72 cm 41.1 kg/m2 751634.94 g Jennifer Etienne [facility] 06/21/2022 12:22:16 Date Recorded Systolic blood pressure Diastolic blood pressure Provider Name and Address Organization Details Last Updated DateTime 06/21/2022 136 mm[Hg] 80 mm[Hg] Kathy Uribe, AYAN- [address], [place], [address], [facility] 06/21/2022 12:30:56 Date Recorded Body height Systolic blood pressure Diastolic blood pressure Provider Name and Address Organization Details Last Updated DateTime 06/30/2022 172.72 cm 169 mm[Hg] 75 mm[Hg] Eden Glez [facility] 06/30/2022 15:06:28 Social History Question Answer Notes LastModified by Organizat ion Details LastModified Time Tobacco Smoking Status Current Every Day Smoker Jennifer Lowell gutierrez, [facility] 06/21/2022 12:26:50 What Is Your Level Of Alcohol Consumption? None Information not available 06/21/2022 In The 14 Days Before Symptom Onset, Have You Had Close Contact With A Laboratory-confirm ed COVID-19 While That Case Was Ill? No Information n ot available 06/21/2022 In The 14 Days Before Symptom Onset, Have You Had Close Contact With A Person Who Is Under Investigation For COVID-19 While That Person Was Ill? No Information not available 06/21/2022 Have You Been To An Area Known To Be High Risk For COVID-19? No Information not available 06/21/2022 Do You Use Any Illicit Or Recreational Drugs? No Information not available 06/21/2022 Sex: Unknown Functional Status None recorded. Mental Status None recorded. Family History Relationship Description Onset Age of this Age Resolved Age Notes LastModified by Organization Details LastModified Time Mother Carcinoma in situ of breast [email or web address] Not available 2019 11:23:19 Mother Heart disease [email or web address] Not available 2019 11:23:27 Mother Diabetes mellitus [email or web address] Not available 2019 11:23:37 Mother Hypertensive disorder [email or web address] Not available 2019 11:23:47 Father Hypertensive disorder [email or web address] Not available 2019 11:23:47 Father Carcinoma in situ of colon [email or web address] Not available 2019 11:23:57 Brother Myocardial infarction [email or web address] Not available 07/18 11:24:07 Notes:Brother: Myocardial in farction Father: Cancer, colon, Hypertension Mother: Heart disease, Hypertension, Cancer, breast, Diabetes mellitus Medical History Condition Response Diabetes Y Anemia Y Hypertension Y High Cholesterol Y Gynecological History Statement/Question Response Abnormal Pap N Date of Last Colonoscopy 02/13/2022 Date of Last Mammogram 12/14/2021 Sexually Active? N STIs/STDs N Menses Monthly N HPV Vaccine N Date of Last Pap Smear 03/14/2018 Sexual Problems? N Current Control Method None Obstetrics History GPAL:G 4 P 0 0 0 4 Type Value Living 4 Total 4 Past Encounters Encounter ID Performer Location Encounter Start Date Encounter Closed Date Diagnosis/Indication Diagnosis SNOMED-CT Code Diagnosis ICD10 Code Diagnosis Note [id number] Kathy Uribe [facility] [address],[place] [address] 07/19/2019 11:14:27 07/19/2019 13:53:22 Vaginitis 24265582 N76.0 Vag cultures sent Will await results to treat. Time spent in visit is a total of 16 mins with at least 50% of visit consisting of counseling and review of plan of care. Pain in pelvis 35015695 R10.2 Exam significan tly inhibited by body habitus but did have some low adnexal pain in right side on exam. 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 Will schedule at front. Patient is to contact office or go to nearest ED/Urgent care if fever >/= 100.1, pain, excessive bleeding, unusual drainage or swelling in area of concern; or experienci ng worsening sx's or new onset of concerning sx's. Understand ing verbalized . All questions answered to patient satisfacti on. [id number] Analisa [facility] [address],[place] [address] 07/25/2019 11:43:35 07/25/2019 18:07:03 Pain in pelvis 03921396 R10.2 [id number] Kathy Uribe [facility] [address],[place] [address] 06/21/2022 11:52:31 06/21/2022 12:54:40 Gynecologic examination [id number] Z01.419 Take Calcium with Vitamin D 12-1500mg daily. Do monthly self breast exams. It is advised to get annual flu shot in the fall and she could obtain at [facility] or [facility] take care clinic. If you haven't received the Tdap vaccine in the last 10 years you should obtain one as well. Have mammogram yearly, bone density every 2-3 years and colonoscop y every 5-10 years depending on findings and history. Engage in daily exercise of low impact aerobic exercise 45-60 minutes 4-5 times weekly. Avoid tobacco and illicit drugs as well as using moderation with alcohol intake less than 1-2 8 oz beverages daily. This lifestyle behavior pattern will lead to less health conditions and longer life span. If BMI greater than 25 weight watchers or dietary consult advised. Questions have been answered. Patient appears to understand instructio ns, but if you have any further questions call or respond to this email Pap/hpv sentSTD Screen declinedGe netic Screen discussedC olon Screen UTD PCPDexa Screen UTD PCPRoutine Labs UTD PCPmammo ordered Screening mammography 24 [id number] Z12.31 [id number] BRANDON Thomas [place] [address] [address] 06/30/2022 14:48:28 06/30/2022 16:13:24 Low back pain [id number] M54.50 UA - normal, cx sentdiscus sed pain likely musculoske letal in nature, occurred after exercising we agreed to update pelvic u/s to r/o gyne source of painrecomm ended f/u with PCP for further evaluation as well Time spent in visit is a total of 20 mins with at least 50% of visit consisting of counseling and review of plan of care. BP precaution s discussed. No symptoms. Encouarage d to log BP at home, f/u with PCP Abdominal pain [id number] R10.9 Health Concerns Section Related Observation LastModified by Organization Detai ls LastModified Time None Recorded Concern Status LastModified by Organization Details LastModified Time None Recorded Advance Directives Directive None Recorded Payers Encounter Date Sequence Insurance Name Policy Number Policy Davey Covered Member ID Davey Member ID Guarantor Name 07/19/2019 1 [place] Leigh Ann Pereirae [id number] Leigh Ann Salvadorrone 07/19/2019 2 [place] [employer] Leigh Ann Pereirae [id number] Leigh Ann Legrone 07/25/2019 1 [place] Adriannaoria Legrone [id number] Evoria Legrone 07/25/2019 2 [place] [facility] Evoria Legrone [id number] Evoria Legrone 06/21/2022 1 [place] Evoria Legrone [id number] Evoria Legrone 06/21/2022 2 [place] [facility] Evoria Legrone [id number] Evoria Legrone 06/30/2022 1 [place] Evoria Legrone [id number] Evoria Legrone 06/30/2022 2 [place] [facility] Evoria Legrone [id number] Evoria Legrone Notes Date Note Type Note Provider Name and Address Organization Details Recorded Time 0 text/html Vaginal/Vulvar ProblemReported bypatient.Notes:Patient is a 58yo AA postmenopausal female here today with two main concerns: 1. Right low pelvic pain x 1wks Has regular BM Denies N/V/F/D/Constipation Neg PMB Feels like sharp Twinge that is very random Does not require pain meds 2. Vaginal discharge White vag d/c x 1wk Not SA Monogamous relationship Not itching No odor No urinary sx's HILDA Tucker [address], [place], [address], [facility] 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 Post-MenopausalReported bypatient.Menopausal Symptoms:no menopausal symptoms; normal vaginal lubrication Vaginal Bleeding:history of menopause having occurred; no history of post menopausal bleeding Urinary Symptoms:no hematuria; no incontinence; no nocturia; no urinary frequency Vulva:no genital lesion; no vulvar atrophy Vagina:normal vaginal discharge; no vaginal atrophy Breast:no breast lump; no nipple discharge; no breast pain Sexual Complaints:no sexual complaints Psychological Symptoms:no depression; no anxiety Preventive Measures:encourage regular mammograms starting age 40; encourage self breast examination; encourage regular exercise; encourage no tobacco use; needs to schedule mammogram; history of recent colonoscopy (cologuard) HILDA Tucker [address], [place], [address], [facility] 06/21/2022 12:45:59 3 text/html 61yopresents for evaluation of right sided back painsymptoms started about 2 days ago after riding a an indoor exercise bike. Slight ache that comes and goes, worse with movement. Mostly feels it in her back, has noticed slight pain a few times in the lower abdomen.Denies any pain with urination, incontinence, or frequencyneg vaginal symptomsnormal bowel movementsMenopausal age 54, no PMBnot SA Concha Jackson, BRANDON [address], [place], [address], [facility] 06/30/2022 16:08:48 OBGyn Episode Ob Episode Information Episode Created Date Number of Fetuses Patient Bloodtype Patient rh Status Prepregnancy Weight lbs Domestic Partner Domestic Partner Phone Father Name [employer] Status 07/19/19 20 1 CLOSED Fetus Data First Name Last Name Admitted to NICU Weight (g) Sex Living Outcome Pediatric Complications Fetus ID Race Codes Race Delivery Type 2007 Repeat Jerry Calculation Initial Jerry Date Initial Exam Date Initial Exam Provider Initial Ultrasound Date Last Menstrual Period Date Ultra Sound Weeks Gestation 0 Eighteen To Twenty Week Jerry Update Ultra Sound Date Fundal Height At Umbil Quickening Date Ultra Sound Latest Weeks Gestation Final Jerry Confirmed By Final Jerry Confirmed Date Final Jerry Date Ultra Sound Latest Days Gestation 0 0 Menstrual History Last Menstrual Date Menses Monthly On Bcp Conception Prior Menses Frequency Hcg Plus Date Menarche Onset Age Delivery Information Delivery Date Delivery Type Labor Anesthesia Weeks Gestation Incision Type Labor Labor Length Hrs Delivered By Post Complications Tubal Sterilization Discharge Date Comments 8 Discharge Information Feeding Method Contraceptive Method Maternal HG B and HCT Levels Ob Episode Information Episode Created Date Number of Fetuses Patient Bloodtype Patient rh Status Prepregnancy Weight lbs Domestic Partner Domestic Partner Phone Father Name [employer] Status 07/19/19 20 1 CLOSED Fetus Data First Name Last Name Admitted to NICU Weight (g) Sex Living Outcome Pediatric Complications Fetus ID Race Codes Race Delivery Type 2008 Repeat Jerry Calculation Initial Jerry Date Initial Exam Date Initial Exam Provider Initial Ultrasound Date Last Menstrual Period Date Ultra Sound Weeks Gestation 0 Eighteen To Twenty Week Jerry Update Ultra Sound Date Fundal Height At Umbil Quickening Date Ultra Sound Latest Weeks Gestation Final Jerry Confirmed By Final Jerry Confirmed Date Final Jerry Date Ultra Sound Latest Days Gestation 0 0 Menstrual History Last Menstrual Date Menses Monthly On Bcp Conception Prior Menses Frequency Hcg Plus Date Menarche Onset Age Delivery Information Delivery Date Delivery Type Labor Anesthesia Weeks Gestation Incision Type Labor Labor Length Hrs Delivered By Post Complications Tubal Sterilization Discharge Date Comments 2 Discharge Information Feeding Method Contraceptive Method Maternal HG B and HCT Levels Ob Episode Information Episode Created Date Number of Fetuses Patient Bloodtype Patient rh Status Prepregnancy Weight lbs Domestic Partner Domestic Partner Phone Father Name [employer]ator [employer] Status 07/19/19 20 1 CLOSED Fetus Data First Name Last Name Admitted to NICU Weight (g) Sex Living Outcome Pediatric Complications Fetus ID Race Codes Race Delivery Type 2009 Primary Jerry Calculation Initial Jerry Date Initial Exam Date Initial Exam Provider Initial Ultrasound Date Last Menstrual Period Date Ultra Sound Weeks Gestation 0 Eighteen To Twenty Week Jerry Update Ultra Sound Date Fundal Height At Umbil Quickening Date Ultra Sound Latest Weeks Gestation Final Jerry Confirmed By Final Jerry Confirmed Date Final Jerry Date Ultra Sound Latest Days Gestation 0 0 Menstrual History Last Menstrual Date Menses Monthly On Bcp Conception Prior Menses Frequency Hcg Plus Date Menarche Onset Age Delivery Information Delivery Date Delivery Type Labor Anesthesia Weeks Gestation Incision Type Labor Labor Length Hrs Delivered By Post Complications Tubal Sterilization Discharge Date Comments 7 Discharge Information Feeding Method Contraceptive Method Maternal HG B and HCT Levels Ob Episode Information Episode Created Date Number of Fetuses Patient Bloodtype Patient rh Status Prepregnancy Weight lbs Domestic Partner Domestic Partner Phone Father Name [employer]ator [employer] Status 07/19/19 20 1 CLOSED Fetus Data First Name Last Name Admitted to NICU Weight (g) Sex Living Outcome Pediatric Complications Fetus ID Race Codes Race Delivery Type 2006 Repeat Jerry Calculation Initial Jerry Date Initial Exam Date Initial Exam Provider Initial Ultrasound Date Last Menstrual Period Date Ultra Sound Weeks Gestation 0 Eighteen To Twenty Week Jerry Update Ultra Sound Date Fundal Height At Umbil Quickening Date Ultra Sound Latest Weeks Gestation Final Jerry Confirmed By Final Jerry Confirmed Date Final Jerry Date Ultra Sound Latest Days Gestation 0 0 Menstrual History Last Menstrual Date Menses Monthly On Bcp Conception Prior Menses Frequency Hcg Plus Date Menarche Onset Age Delivery Information Delivery Date Delivery Type Labor Anesthesia Weeks Gestation Incision Type Labor Labor Length Hrs Delivered By Post Complications Tubal Sterilization Discharge Date Comments 9 Discharge Information Feeding Method Contraceptive Method Maternal HG B and HCT Levels
--- OUTSIDE RECORDS SUMMARY | 2024-06-03 15:39 | XMS_ITS | Patient Health Record ---
Author Organization [facility] Address [address] [place], [place] [id number] Care Team Providers Care Geographical Historian Name Role Phone HONORIONEO Lenz Unavailable [phone] Maru Winston Unavailable Unavailable Allergies Allergen (clinical drug ingredient) Drug/Non Drug Allergy documented on EMR Reaction Allergy Type Onset Date Status amoxicillin Amoxicillin Unknown Drug Allergy Act wilfred ampicillin Ampicillin Unknown Drug Allergy Activ e ciprofloxacin Ciprofloxacin Unknown Drug Allergy Active metformin Metformin Unknown Drug Allergy Active Reason For Referral No Information Medications Medication SIG (Take, Route, Frequency, Duration) Notes Start Date End Date Status Metoprolol & Diet Manage Prod Active Fenofibrate Active Atorvastatin Calcium Active Furosemide Active Januvia Active Losartan Potassium A ctive Clotrimazole 1 % 1 application Public Health Registrar ally once a day to toenails for 30 days 04/09/2024 10/06/2024 Active Levothyroxine Sodium Active Social History Tobacco Use: Social History Observation Description Date Details (start date - stop date) Unknown if ever smoked NA - NA Tobacco Control (Standard) Question Answer Notes Tobacco use: Unknown if ever smoked Encounters Encounter Location Date Provider Diagnosis [facility] [place] [address] [place], [place] [id number] 06/19/2023 NEO CONNER Tinea unguium B35.1 ; Acquired keratosis [keratoderma] palmaris et plantaris L85.1 ; Atherosclerosis of [place] arteries of extremities with intermittent claudication, bilateral legs I70.213 ; Pain in right foot M79.671 and Pain in left foot M79.672 [facility] [address] [facility] [address] [place], [place] [id number] 04/09/2024 NEO CONNER Assessments Encounter Date Diagnosis (ICD Code) Assessment Notes Treatment Notes Treatment Clinical Notes Section Notes 06/19/2023 Tinea unguium (ICD-10 - B35.1) Nails 1-5 Bilateral were debrided extensively with nail nippers and emery board, reducing length and girth to pink healthy tissue with any subungual debris and necrotic tissue removed 06/19/2023 Acquired keratosis [keratoderma] palmaris et plantaris (ICD-10 - L85.1) A total of 1 corns or calluses, as described in the note above, were cut and pared utilizing a #15 blade 06/19/2023 Atherosclerosis of [place] arteries of extremities with intermittent claudication, bilateral legs (ICD-10 - I70.213) 06/19/2023 Pain in right foot (ICD-10 - M79.671) 06/19/2023 Pain in left foot (ICD-10 - M79.672) Plan Of Treatment No Information Insurance Providers Payer Name Payer Address Payer Phone Subscriber Number Group Number Insured Name Patient Relationship to Insured Coverage Start Date Coverage End Date Medicare Part B [facility] [place] [address] [place] [phone] [id number] ANANYA JACKSON Self - patient is the insured Medical (General) History Medical History History ICD Code Arthritis Diabetic high blood pressure
== END 2024-06-03 13:47 | disposition home or self-care (01) ==
LOC: ANHIMG 13:49
PROVIDERS: PCP Physician Assistant; Visit Provider Physician Assistant
DX: Z12.31 Encounter for screening mammogram for malignant neoplasm of breast (principal)
CPT/HCPCS: 77063; 77067

== ENCOUNTER 2025-02-11 14:04 | Outpatient (CLI) | payer OTHER, SELFPAY ==
--- OUTSIDE RECORDS SUMMARY | 2023-09-18 08:00 | XMS_ITS ---
Author Organization [facility] Address [address] [place], [place] [id number] Care Team Providers Care Binder Roller Name Role Phone NEO CONNER Unavailable [phone] Maru iWnston Unavailable Unavailable REASON FOR VISIT *General care Encounters Encounter Location Date Provider Diagnosis [facility] [place] [address] [place], [place] [id number] 09/18/2023 NEO OLMEDOK Plan Of Treatment No Information Progress Notes * ANANYA JACKSONDOB: 0 (64 yo F)Acc No.[id number]:09/18/2023 Patient: ANANYA ESTRADA Provider: Anthony Conner DPGregorio :1960 A ge:62 Y S ex:Female Date:09/18/2023 Address:[address] [place] [address] [address], [id number] Subjective: * Chief Complaints: * * General care Billing Information: * Procedure Codes: * Electronic signature of NEO CONNER DPM on 02/11/2025 at 02:23 PM LIME SPREADER Sign off status: Pending * Provider: Anthony Conner DPM Date: 0 09/18/2023 Generated for Adarsh carlton/Jojo/eTransmitting on: 1 02:23 PM LIME SPREADER
--- NOTE | ~2025-02-11 | DEXA_ITS ---
Bone Density Report Name: ANANYA JACKSON Age: 64 Sex: Female Ethnicity: White Date of : 1960 Indication: postmenopausal; screening for osteoporosis; parental hip fracture; prior fracture; Referring Provider: ELYSIA, MATTHIAS Study: Bone densitometry was performed. Exam Date: February 11, 2025 Accession number: [id number] Bone Density: Region BMD T-score Z-score Classification AP Spine(L1, L2) 0.984 0.0 1.7 Normal Femoral Neck (Left) 0.743 -1.0 0.6 Normal Total Hip (Left) 0.976 0.3 1.5 Normal Femoral Neck (Right) 0.662 -1.7 -0.2 Osteopenia Total Hip (Right) 1.010 0.6 1.8 Normal Total Hip Mean 0.993 0.5 1.7 Normal World Health Organization criteria for BMD impression classify patients as: Normal (T-score at or above -1.0), Osteopenia (T-score between -1.0 and -2.5), or Osteoporosis (T-score at or below -2.5). 10-year Fracture Risk(1): Major Osteoporotic Fracture 25% Hip Fracture 2.9% Reported Risk Factors: [place] (), Neck BMD=0.662, BMI=37.6, previous fracture, parental fracture, smoking (1) FRAX(R) Version 3.08. Fracture probability calculated for an untreated patient. Fracture probability may be lower if the patient has received treatment. Clinical Information Provided by Patient: Has had a low trauma fracture Parent has had a hip fracture Smokes Has used the following medications: multi vitamin Patient maximum height was 68.5 Menopause Age: 46 Does not regularly consume dairy products Onset of menses at age 11 Number of children 4 Impression: The patient has low bone mass, based on the Right Femoral Neck T-score. The patient has an estimated ten-year risk of hip fracture of 2.9% and an estimated ten-year risk of major fracture of 25%, based on the WHO FRAX algorithm. The patient has risk factors, including: parental hip fracture, smoking, previous fracture. Discussion: BONE DENSITY IS LOW AT ONE OR MORE SKELETAL SITES. THE PATIENT'S BMD AND CLINICAL RISK FACTORS CONTRIBUTE TO THIS PATIENT'S INCREASED RISK OF FRACTURE. This patient's lowest T-score is low at one or more skeletal sites. It meets the World Health Organization's (WHO) criteria for ?low bone mass? (T-score between -1.0 and -2.5). The patient's 10-year risk of a major osteoporotic fracture as calculated by FRAX exceeds the threshold where pharmacological therapy is recommended by the National Osteoporosis Foundation (NOF). However, all treatment decisions require clinical judgment and consideration of individual patient factors, including patient preferences, comorbidities, previous drug use, risk factors not captured in the FRAX model (e.g., frailty, falls, vitamin D deficiency, increased bone turnover, interval significant decline in bone density) and possible under or overestimation of fracture risk by FRAX. The patient should follow a healthful lifestyle (good nutrition with adequate calcium and vitamin D, and appropriate weight-bearing exercise). Follow-Up: Consider a repeat BMD and Vertebral Fracture Assessment (VFA) exam in 2 years or sooner if medically necessary, to reassess this patient's status. Reported by: YASMEEN on 02/12/2025 1:59:00 PM. Reviewed, dictated and finalized at location A.
--- OUTSIDE RECORDS SUMMARY | 2025-02-11 14:23 | XMS_ITS | Clinical Summary ---
Author Organization [facility] Address [address] [place] [address] Care Team Providers Care Wild Life Manager Name Role Phone Unavailable Primary Care Provider [...] 1:39 PM CDT Height 172.7 cm (5' 8) 08/19/2017 1:39 PM CDT Body Mass Index 37.95 08/19/2017 1:39 PM CDT Plan of Treatment Health Maintenance Due Date Last Done Comments Colorectal Cancer Screening Colonoscopy (10 Years) 1960 Hepatitis C 09/20/1977 DTaP, Tdap and Td Vaccines ( 1 - Tdap) 09/20/1978 Mammogram Screening 1999 Pneumococcal Vaccine: 50+ Ye ars (1 of 1 - PCV) 09/20/2009 Zoster Vaccines (1 of 2) 09/20/2009 Dexa Scan (General) 09/20/2024 COVID-19 Vaccine (1 - 2024-2 6 season) 2024 Influenza Adult (#1) 2024 RSV Immunization or 60+ Years (1 - 1-dose 75+ series) 09/20/2034 Hepatitis A Vaccines Aged Out No long er eligible based on patient's age to complete this topic Meningococcal B Vaccine Aged Out No l onger eligible based on patient's age to complete this topic Meningococcal Vaccine Aged Out No jerica juan eligible based on patient's age to complete this topic RSV Immunizations Under 20 Months Aged Out No longer eligible based on patient's age to complete this topic Insurance MEDICARE MEDICAID
--- OUTSIDE RECORDS SUMMARY | 2025-02-11 14:23 | XMS_ITS | Clinical Summary ---
Author Organization [facility] Address [address] [place] [address] Care Team Providers Care Separator Operator Name Role Phone Maru Winston Primary Care Provider [phone] Allergies Active Allergy Reactions Criticality Noted Date [...] Date Diagnosed Date Paroxysmal atrial fibrillation 11/29/2018 Medical History Medical History Date Comments Atrial [...] Comments Blood Pressure 122/68 03/26/2024 1:30 PM CONSULTING TECHNICAL MANAGER Pulse 88 03/26/2024 1:30 PM CONSULTING TECHNICAL MANAGER Temperature 36.8 C (98.3 F) 03/26/2024 8:00 AM CONSULTING TECHNICAL MANAGER Respiratory Rate 16 03/26/2024 1:30 PM CONSULTING TECHNICAL MANAGER Oxygen Saturation 100% 03/26/2024 1:30 PM CONSULTING TECHNICAL MANAGER Inhaled Oxygen Concentration - - Weight 114.6 kg (252 lb 10.4 oz) 03/26/2024 8:08 AM CONSULTING TECHNICAL MANAGER Height 172.7 cm (5' 8) 03/26/2024 8:00 AM CONSULTING TECHNICAL MANAGER Body Mass Index 38.41 03/26/2024 8:00 AM CONSULTING TECHNICAL MANAGER Plan of Treatment Health Maintenance Due Date Last Done Comments Breast Cancer Screening-Mammogram 1960 Cervical Cancer Screening 1959 Colon Cancer Screening-Colonoscopy 1959 Depression Screening 1959 Hepatitis C Screening 1959 Osteoporosis Screening-Bone Density Scan 1959 DTaP/Tdap/Td Vaccine (1 - Tdap) 09/20/1970 Hepatitis B Screening 09/20/1977 Pneumococcal vaccine 65+ (1 of 2 - PCV) 09/20/1978 Zoster Vaccine (1 of 2) 09/20/2009 Fall Risk Assessment 06/10/2020 06/11/2019 Well Visit 65+ 09/20/2024 Influenza Vaccine (#1) 2024 Insurance MEDICARE [facility] Care Teams Separator Operator Relationship Specialty Start Date End Date Maru Winston PA [address] [place] [address] PCP - General Physician Marble Mason 08/19/22
--- OUTSIDE RECORDS SUMMARY | 2025-02-11 14:23 | XMS_ITS | Patient Health Record ---
Author Organization [facility] Address [address] [place], [place] [id number] Care Team Providers Care Pool Nurse Name Role Phone NEO CONNER Unavailable [phone] Maru Winston Unavailable Unavailable Allergies Allergen (clinical [...] Date End Date Status Clotrimazole 1 % Solution APPLY ONCE A D AY TO THE TOENAILS; Duration: 30 Active Metoprolol & Diet Manage Prod Active Fenofibrate Active Atorvastatin Calcium Active Furosemide Active Januvia Active Losartan Potassium A ctive Levothyroxine Sodium Active Social History Tobacco Use: Social History Observation Description Date Details (start date - stop date) Unknown if ever smoked NA - NA Social History Tobacco Use: Social Info Question Answer Notes Tobacco Control (Standard) Tobacco use: Unknown if donald r smoked Encounters Encounter Location Date Provider Diagnosis [facility] [address] [facility] [address] [place], [place] [phone] 04/09/2024 NEO CONNER Plan Of Treatment No Information Insurance Providers Payer Name Payer Address Payer Phone Subscriber Number Group Number Insured Name Patient Relationship to Insured Coverage Start Date Coverage End Date Medicare Part B [place] [address] [place] [phone] [id number] ANANYA JACKSON Self - patient is the insured Medical (General) History Medical History History ICD Code Arthritis Diabetic high blood pressure
== END 2025-02-11 14:05 | disposition home or self-care (01) ==
LOC: ANHFOHIMG 14:08
PROVIDERS: PCP Physician Assistant; Visit Provider Physician Assistant
DX: M85.851 Other specified disorders of bone density and structure, right thigh (principal); Z78.0 Asymptomatic menopausal state
CPT/HCPCS: 77080